=== PATIENT | male | born 1960 | race Caucasian/White ===

== ENCOUNTER 2016-12-21 11:01 | Inpatient (IN) | payer BC, OTHER ==
--- NOTE | 2016-12-21 11:15 | ED ---
General Adult HPI - General Stated complaint: chest pain Time Seen by Provider: 12/21/16 11:13 Source: RN notes reviewed, old records reviewed - History of Present Illness Initial comments: This is a 56-year-old [place] chest pain, anterior heaviness on his chest. Heart history of high blood pressure and high cholesterol. No prior cardiac evaluations. Patient will go from sleep with chest pain this morning and it did resolve, patient was again doing some exertional work today and is felt heaviness in his anterior chest.. Anterior chest pain or shortness of breath. - Related Data Home Medications Medication Instructions Recorded Confirmed Esomeprazole Magnesium [NexIUM] 20 mg PO DAILY 12/21/16 12/21/16 Levothyroxine Sodium [Synthroid] 50 mcg PO DAILY 12/21/16 12/21/16 Losartan [Cozaar] 25 mg PO DAILY 12/21/16 12/21/16 Simvastatin [Zocor] 40 mg PO HS 12/21/16 12/21/16 Allergies Allergy/AdvReac Type Severity Reaction Status Date / Time No Known Allergies Allergy Verified 12/21/16 11:45 Review of Systems ROS Statement: Those systems with pertinent positive or pertinent negative responses have been documented in the HPI. ROS Other: All systems not noted in ROS Statement are negative. Past Medical History Past Medical History: GERD/Reflux, Hyperlipidemia History of Any Multi-Drug Resistant Organisms: None Reported Past Surgical History: Hernia Repair Past Psychological History: No Psychological Hx Reported Smoking Status: Current every day smoker Past Alcohol Use History: Occasional Past Drug Use History: None Reported General Exam Limitations: altered mental status General appearance: alert, in no apparent distress, anxious Head exam: Present: atraumatic, normocephalic, normal inspection Eye exam: Present: normal appearance, PERRL, EOMI. Absent: scleral icterus, conjunctival injection, periorbital swelling ENT exam: Present: normal exam, mucous membranes moist Neck exam: Present: normal inspection. Absent: tenderness, meningismus, lymphadenopathy Respiratory exam: Present: normal lung sounds bilaterally. Absent: respiratory distress, wheezes, rales, rhonchi, stridor Cardiovascular Exam: Present: regular rate, normal rhythm, normal heart sounds. Absent: systolic murmur, diastolic murmur, rubs, gallop, clicks GI/Abdominal exam: Present: soft, normal bowel sounds. Absent: distended, tenderness, guarding, rebound, rigid Extremities exam: Present: normal inspection, full ROM, normal capillary refill. Absent: tenderness, pedal edema, joint swelling, calf tenderness Back exam: Present: normal inspection Neurological exam: Present: alert, oriented X3, CN II-XII intact Psychiatric exam: Present: normal affect, normal mood Skin exam: Present: warm, dry, intact, normal color. Absent: rash Course Vital Signs 12/21/16 12/21/16 12/21/16 11:05 11:19 12:08 Temperature 98.3 F 97.9 F Pulse Rate 78 70 Respiratory 18 20 20 Rate Blood Pressure 170/88 168/83 O2 Sat by Pulse 95 Oximetry - Reevaluation(s) Reevaluation #1: 12/21/16 12:28 Patient is remaining with anterior chest pain Reevaluation #2: 12/21/16 12:29 Spoke with cardiology remaining regarding patient, will see patient in emergency room EKG Findings - EKG Comments: EKG Findings:: EKG shows normal sinus rhythm rate of 80, TN 160, QRS 90, QTC 421 single-lead ST elevation minimally in V1. repeat. EKG shows normal sinus rhythm at 66, TN 180, QRS 90, QTC 427 Medical Decision Making - Medical Decision Making 50 formality ER for evaluation of anterior chest pain chest pain worsening with exertion started this morning at 3 AM the resolving nonrecurring this afternoon while at work. No EKG changes and out but does have elevated troponin, non-ST elevated [place], patient anticoagulated given aspirin, will perform bedside echo and patient will be admitted for cardiac evaluation and treatment. Cardiology was patient was at bedside in the emergency room. - Lab Data Result diagrams: 12/21/16 11:25 12/21/16 11:25 Lab Results 12/21/16 12/21/16 12/21/16 Range/Units 11:25 11:25 11:25 WBC 9.0 (3.8-10.6) k/uL RBC 4.47 (4.30-5.90) m/uL Hgb 15.3 (13.0-17.5) gm/dL Hct 44.8 (39.0-53.0) % MCV 100.3 H (80.0-100.0) fL MCH 34.1 (25.0-35.0) pg MCHC 34.0 (31.0-37.0) g/dL RDW 12.8 (11.5-15.5) % Plt Count 191 (150-450) k/uL Neutrophils % 71 % Lymphocytes % 21 % Monocytes % 4 % Eosinophils % 1 % Basophils % 1 % Neutrophils # 6.4 (1.3-7.7) k/uL Lymphocytes # 1.9 (1.0-4.8) k/uL Monocytes # 0.4 (0-1.0) k/uL Eosinophils # 0.1 (0-0.7) k/uL Basophils # 0.1 (0-0.2) k/uL PT (9.0-12.0) sec INR (<1.1) APTT (22.0-30.0) sec Sodium 138 (137-145) mmol/L Potassium 4.1 (3.5-5.1) mmol/L Chloride 102 (98-107) mmol/L Carbon Dioxide 22 (22-30) mmol/L Anion Gap 14 mmol/L BUN 12 (9-20) mg/dL Creatinine 0.66 (0.66-1.25) mg/dL Est GFR (MDRD) Af Amer >60 (>60 ml/min/1.73 sqM) Est GFR (MDRD) Non-Af >60 (>60 ml/min/1.73 sqM) Glucose 107 H (74-99) mg/dL Calcium 9.5 (8.4-10.2) mg/dL Magnesium 1.5 L (1.6-2.3) mg/dL Total Bilirubin 0.6 (0.2-1.3) mg/dL AST 65 H (17-59) U/L ALT 50 (21-72) U/L Alkaline Phosphatase 58 (38-126) U/L Total Creatine Kinase 617 H (55-170) U/L CK-MB (CK-2) 39.2 H* (0.0-2.4) ng/mL CK-MB (CK-2) Rel Index 6.4 Troponin I 2.080 H* (0.000-0.034) ng/mL Total Protein 7.6 (6.3-8.2) g/dL Albumin 4.4 (3.5-5.0) g/dL Lipase 89 (23-300) U/L 03/16/17 Range/Units 11:25 WBC (3.8-10.6) k/uL RBC (4.30-5.90) m/uL Hgb (13.0-17.5) gm/dL Hct (39.0-53.0) % MCV (80.0-100.0) fL MCH (25.0-35.0) pg MCHC (31.0-37.0) g/dL RDW (11.5-15.5) % Plt Count (150-450) k/uL Neutrophils % % Lymphocytes % % Monocytes % % Eosinophils % % Basophils % % Neutrophils # (1.3-7.7) k/uL Lymphocytes # (1.0-4.8) k/uL Monocytes # (0-1.0) k/uL Eosinophils # (0-0.7) k/uL Basophils # (0-0.2) k/uL PT 10.9 (9.0-12.0) sec INR 1.1 (<1.1) APTT 27.3 (22.0-30.0) sec Sodium (137-145) mmol/L Potassium (3.5-5.1) mmol/L Chloride (98-107) mmol/L Carbon Dioxide (22-30) mmol/L Anion Gap mmol/L BUN (9-20) mg/dL Creatinine (0.66-1.25) mg/dL Est GFR (MDRD) Af Amer (>60 ml/min/1.73 sqM) Est GFR (MDRD) Non-Af (>60 ml/min/1.73 sqM) Glucose (74-99) mg/dL Calcium (8.4-10.2) mg/dL Magnesium (1.6-2.3) mg/dL Total Bilirubin (0.2-1.3) mg/dL AST (17-59) U/L ALT (21-72) U/L Alkaline Phosphatase (38-126) U/L Total Creatine Kinase (55-170) U/L CK-MB (CK-2) (0.0-2.4) ng/mL CK-MB (CK-2) Rel Index Troponin I (0.000-0.034) ng/mL Total Protein (6.3-8.2) g/dL Albumin (3.5-5.0) g/dL Lipase (23-300) U/L - Radiology Data Radiology results: report reviewed (Chest x-ray is negative for acute disease), image reviewed Critical Care Time Critical Care Time: Yes Total Critical Care Time: 31 Disposition Clinical Impression: NSTEMI (non-ST elevated myocardial infarction) Disposition: ADMITTED IP TO THIS [facility] Condition: Critical Referrals: Itz Chahal DO [Primary Care Provider] - 1-2 days
[2016-12-21 11:41] LABS: Basophils # (A) 0.1 k/uL (0-0.2); Basophils % (A) 1 %; CH 34.6; CHCM 34.6; Eosinophils # (A) 0.1 k/uL (0-0.7); Eosinophils % (A) 1 %; HCT 44.8 % (39.0-53.0); HDW 2.29; HGB 15.3 gm/dL (13.0-17.5); Luc # (Auto) 0.19; Luc % (Auto) 2; Lymphocytes # (A) 1.9 k/uL (1.0-4.8); Lymphocytes % (A) 21 %; MCH 34.1 pg (25.0-35.0); MCV 100.3 fL (80.0-100.0); Mean Platelet Volume 7.6; Monocytes # (A) 0.4 k/uL (0-1.0); Monocytes % (A) 4 %; Neutrophils # (A) 6.4 k/uL (1.3-7.7); Neutrophils % (A) 71 %; RBC 4.47 m/uL (4.30-5.90); RDW 12.8 % (11.5-15.5); WBC (Perox) 8.91
[2016-12-21 11:52] LABS: INR 1.1 (<1.1); Partial Thromboplastin Time 27.3 sec (22.0-30.0); Prothrombin Time 10.9 sec (9.0-12.0)
[2016-12-21 11:56] LABS: ALT 50 U/L (21-72); AST 65 U/L (17-59); Alkaline Phosphatase 58 U/L (38-126); Anion Gap 14 mmol/L; Blood Urea Nitrogen 12 mg/dL (9-20); Calcium 9.5 mg/dL (8.4-10.2); Carbon Dioxide 22 mmol/L (22-30); Chloride 102 mmol/L (98-107); Glucose 107 mg/dL (74-99); Magnesium 1.5 mg/dL (1.6-2.3); Non-African American GFR(MDRD) >60 (>60 ml/min/1.73 sqM); Potassium 4.1 mmol/L (3.5-5.1); Sodium 138 mmol/L (137-145); Total Bilirubin 0.6 mg/dL (0.2-1.3); Total Protein 7.6 g/dL (6.3-8.2)
--- NOTE | 2016-12-21 11:56 | XR ---
EXAMINATION TYPE: XR chest 2V DATE OF EXAM: 12/21/2016 11:53 AM COMPARISON: NONE HISTORY: Chest pain this morning. TECHNIQUE: Frontal and lateral views of the chest are obtained. FINDINGS: There is no focal air space opacity, pleural effusion, or pneumothorax seen. Underlying em physematous change is not excluded. The cardiac silhouette size is within normal limits. The osseou s structures are intact. IMPRESSION: No acute cardiopulmonary process.
[2016-12-21 12:21] LABS: Creatine Kinase MB 39.2 ng/mL (0.0-2.4); Troponin I 2.08 ng/mL (0.000-0.034)
[2016-12-21] MEDS ORDERED: ASPIRIN 81 MG CHEW PO STA (12:22)
[2016-12-21] MEDS ORDERED: HEPARIN SODIUM,PORCINE 5,000 UNIT/ML 1 ML VIAL IV PRN (12:22)
[2016-12-21] MEDS ORDERED: HEPARIN SODIUM,PORCINE 5,000 UNIT/ML 1 ML VIAL IV ONE (12:22)
[2016-12-21] MEDS ORDERED: HEPARIN SODIUM,PORCINE/D5W PMX 25,000 UNIT in DEXTROSE/WATER 1 500ML.BAG IV SCH (12:30)
[2016-12-21] MEDS: NITROGLYCERIN SL TABS 0.4 MG TAB SUBLINGUAL PRN ×3 (12:30→12:41)
[2016-12-21] MEDS: ATORVASTATIN 80 MG TAB PO SCH ×2 (12:31→13:07)
[2016-12-21] MEDS ORDERED: ATORVASTATIN 80 MG TAB PO ONE (13:15)
[2016-12-21] MEDS ORDERED: fentaNYL (PF) 50 MCG/ML 2 ML AMP IV ONE (13:21)
[2016-12-21] MEDS ORDERED: MIDAZOLAM 2 MG/2 ML VIAL IVP ONE ×2 (13:21→17:14)
[2016-12-21] MEDS ORDERED: IV FLUID CONTINUATION 450 ML IV ONE (13:26)
[2016-12-21] MEDS ORDERED: LIDOCAINE 2% INJ 20 MG/ML SQ ONE ×2 (13:26→17:14)
[2016-12-21] MEDS ORDERED: IOHEXOL 350 MG/ML 100 ML BOTTLE INJ ONE ×2 (13:59→17:58)
[2016-12-21] MEDS ORDERED: PRASUGREL 10 MG TAB PO ONE (14:00)
--- NOTE | 2016-12-21 15:00 | CONS ---
DATE OF CONSULTATION: Mr. Anthony is a 56-year-old gentleman who is seen for the cardiac evaluation. This patient woke up around 3:30 in the morning with the complaint of substernal chest discomfort with radiation to the left arm. Patient was slightly nauseated, pain subsequently subsided. He went to work and had recurrence of the pain and so the patient came here. EKG shows evidence of mild ST-elevation in V1, no reciprocal changes are noted. At present, patient is pain free. Initial troponin came back as 2.0. This patient has a history of hypertension, hyperlipidemia and he smokes. There is no previous history of myocardial infarction. PAST MEDICAL HISTORY: No history of any major surgeries. Review of systems is otherwise unremarkable. Physical examination at present reveals a 56-year-old, obesely-built gentleman who does not appear to be in any acute distress. Heart rate is 75 per minute. The blood pressure is 130/80 mmHg. HEENT examination is negative. Neck is supple. There is no increase in jugular venous pressure. Both the carotid pulses are felt. There is no bruit. Chest is symmetrical. HEART: The PMI is not felt. First and second heart sounds are normal. There is no evidence of any murmur. Lungs are clinically clear to auscultation and percussion. Abdomen is soft. Chest x-ray is normal. Patient's lab tests are normal. Troponin is 2.0. Echocardiogram was performed which does not show any significant wall motion abnormality. FINAL IMPRESSION: Chest pain suggestive of non-ST segment elevation myocardial infarction. Patient has a mild ST-segment elevation in lead V1. RECOMMENDATIONS: We will proceed with the cardiac catheterization for definitive diagnosis.
[2016-12-21] MEDS ORDERED: IV FLUID CONTINUATION 150 ML IV ONE (16:50)
[2016-12-21] MEDS ORDERED: LIDOCAINE 2% INJ 20 MG/ML (20 ML MDV) ONE (16:53)
[2016-12-21] MEDS ORDERED: fentaNYL (PF) 50 MCG/ML 2 ML AMP ONE (16:53)
[2016-12-21] MEDS ORDERED: MIDAZOLAM 2 MG/2 ML VIAL ONE (17:12)
[2016-12-21] MEDS ORDERED: BIVALIRUDIN BOLUS 250 MG/50 ML IV ONE (17:17)
[2016-12-21] MEDS ORDERED: BIVALIRUDIN 250 MG in SODIUM CHLORIDE 0.9% 50 ML IV ONE (17:18)
[2016-12-21] MEDS: NITROGLYCERIN 1000MCG/10ML SYRINGE INTRACORON ONE ×2 (17:22→17:34)
[2016-12-21] MEDS ORDERED: SODIUM CHLORIDE 0.9% 1,000 ML IV ONE (17:31)
[2016-12-21] MEDS ORDERED: RX INFO: IV CONTRAST WAS GIVEN 1 EACH MISC MISCELLANE PRN (18:11)
[2016-12-21] MEDS ORDERED: ZOLPIDEM 5 MG TAB PO PRN (18:11)
[2016-12-21] MEDS ORDERED: ATROPINE SULFATE 0.1 MG/ML 10ML SYRINGE IV PRN (18:11)
[2016-12-21] MEDS ORDERED: MAG HYDROX/AL HYDROX/SIMETH 30 ML CUP PO PRN (18:11)
[2016-12-21] MEDS ORDERED: NITROGLYCERIN SL TABS 0.4 MG TAB SUBLINGUAL PRN (18:11)
[2016-12-21] MEDS ORDERED: SODIUM CHLORIDE 0.9% 1,000 ML IV SCH (18:15)
[2016-12-21] MEDS: HYDROcodone/APAP 5-325MG 1 EACH TAB PO PRN (19:20)
[2016-12-21 19:37] LABS: Creatine Kinase MB 90.3 ng/mL (0.0-2.4); Troponin I 10.9 ng/mL (0.000-0.034)
[2016-12-21] MEDS ORDERED: TEMAZEPAM 15 MG CAP PO PRN (20:07)
[2016-12-21] MEDS: METOPROLOL TARTRATE 25 MG TAB PO SCH (20:30)
[2016-12-21] MEDS: NICOTINE 14MG/24HR PATCH TRANSDERM SCH (20:42)
--- NOTE | 2016-12-21 21:51 | CC ---
DATE OF SERVICE: Mr. Anthony is a 56-year-old gentleman who came to the emergency room with recurrent episodes of the resting pain. EKG showed mild ST elevation in V1. Initial troponin was 2.0. Echocardiogram did not show any significant wall motion abnormality. In view of that, history suggestive of non-ST segment elevation myocardial infarction. Patient was recommended to have a cardiac catheterization. PROCEDURE: Right groin was prepped and in the usual manner and the skin was infiltrated with 2% Xylocaine. The right femoral artery was entered using Seldinger technique. A #6 Micronesian sheath was placed in. Selective coronary angiography was then performed in multiple projections and the left ventriculography was performed. Patient tolerated the procedure well. HEMODYNAMICS: Left ventricular end-diastolic pressure is 16 mmHg prior to angiography and 20 mmHg post angiography. No gradient was noted across the aortic valve. SELECTIVE CORONARY ANGIOGRAPHY: LEFT MAIN: Left main coronary artery is normal and patent. LEFT ANTERIOR DESCENDING CORONARY ARTERY: LAD is a good caliber blood vessel and mid LAD after the origin of the diagonal branch has about 70% stenosis. CIRCUMFLEX CORONARY ARTERY: Circumflex coronary artery is normal. RIGHT CORONARY ARTERY: The mid right coronary artery has 70% stenosis. LEFT VENTRICULOGRAM: Left ventriculography reveals normal left ventricular systolic function. FINAL IMPRESSION: This patient has presented with non-Q-wave myocardial infarction. There is about 70% stenosis in mid RCA as well as in mid LAD. RECOMMENDATIONS: We will review the films with Dr. Aguilar and consider intervention.
--- NOTE | 2016-12-21 22:00 | HP ---
DATE OF ADMISSION: 12/21/2016 I am covering for Dr. Chahal. CHIEF COMPLAINT: Chest pain. HISTORY OF PRESENT ILLNESS: This 56-year-old with a history of hypertension, hyperlipidemia, hypothyroidism, history of GERD, being followed by Dr. Chahal in the outpatient setting, complaining of severe chest pain this morning. The pain started around 3 o'clock and was in the anterior part of the chest, heavy in character, which was radiating to the left arm. It was associated with some sweating and palpitations. The patient came to [facility] and was admitted for further evaluation and treatment. The initial EKG showed ST-T changes and minimal ST elevation in V1, acute anterior wall myocardial infarction was suspected. The patient underwent cardiac cath. The patient is being closely monitored. The patient has occasional cough. The patient has a significant history of EtOH and smoking also. There is no history of fevers or rigors. No history of headache, loss of consciousness, seizures. PAST MEDICAL HISTORY: History of GERD, hypertension, hypothyroidism, GERD, hernia repair. MEDICATIONS: 1. Zocor 40 mg at bedtime. 2. Cozaar 25 mg p.o. daily. 3. Synthroid 50 mcg p.o. daily. 4. Nexium 20 mg daily. ALLERGIES: None. FAMILY HISTORY: History of CAD, diabetes mellitus and myocardial infarction in the family. SOCIAL HISTORY: History of smoking. History of alcohol. REVIEW OF SYSTEMS: ENT: No diminished hearing. No diminished vision. CARDIOVASCULAR: As mentioned earlier. RESPIRATORY: As mentioned earlier. GI: No. : No dysuria. ENDOCRINE: As mentioned. CONSTITUTIONAL: As mentioned. HEMATOLOGY: Negative. RHEUMATOLOGIC: Negative. PSYCHIATRY: As mentioned. NEUROLOGY: Negative. PHYSICAL EXAMINATION: GENERAL: The patient is alert, oriented x3. Pulse is 80, blood pressure 149/87, respirations 20, temperature 98.4, pulse ox 94% on room air. HEENT: Conjunctivae normal. Oral mucosa moist. NECK: No JVD. No lymph node enlargement. CARDIOVASCULAR: S1 and S2 muffled. No thrills, no S3 or S4. LUNGS: Breath sounds are diminished in the bases. Scattered rhonchi and crackles. ABDOMEN: Soft, nontender. No mass palpable. LEGS: No edema, no swelling. NERVOUS SYSTEM: Higher functions as mentioned. Moves all limbs. No focal motor or sensory deficits. LYMPHATICS: No lymph nodes present in the neck, axillae or groin. SKIN: No rashes. JOINT: No deformity. LABS: APTT 54.7, glucose 107, magnesium 1.5, troponin 2.080. 100.3. ASSESSMENT: 1. Chest pain with acute anterior wall myocardial infarction status post cardiac catheterization and stenting. Troponin 10.900. 2. Elevated CK and CK-MB. 3. Hypomagnesemia. 4. History of nicotine dependence. 5. Increased random blood sugar. 6. Increased AST. 7. History of EtOH. 8. Increased MCV. 9. Hypertension. 10. Hyperlipidemia. 11. Hypothyroidism. 12. Gastroesophageal reflux disease. 13. History of hernia repair. 14. History of colonoscopy. 15. FULL CODE. 16. Obesity, body mass index of 32.9. RECOMMENDATIONS AND DISCUSSION: This 56-year-old gentleman presented with multiple complex medical issues. At this time we will monitor the patient closely. Continue the current medications and treatment. I have recommend to continue with aspirin. Monitor LFTs closely. [facility] protocol. Habitrol patch. Guarded prognosis because of multiple complex medical issues. Further recommendations to follow. See orders for details. Also recommend the patient closely follow Dr. Chahal after discharge. Otherwise, continue to monitor. Follow with cardiology. Prognosis guarded. Discussed with the family. Smoking cessation also advised. CHANDLERD
[2016-12-22] MEDS: HYDROcodone/APAP 5-325MG 1 EACH TAB PO PRN (00:05)
[2016-12-22 00:33] LABS: Appearance,Urine Clear (Clear); Bilirubin,Urine Negative (Negative); Glucose,Urine (UA) Negative (Negative); Ketones,Urine Negative (Negative); Leukocyte Esterase,Urine Negative (Negative); Nitrite,Urine Negative (Negative); PH, Urine 6.5 (5.0-8.0); Protein,Urine Trace (Negative); Specific Gravity,Urine 1.043 (1.001-1.035); UA Billing (MACRO vs. MICRO) CHEM; Urobilinogen,Urine <2.0 mg/dL (<2.0)
[2016-12-22 00:50] LABS: Creatine Kinase MB 91.3 ng/mL (0.0-2.4); Troponin I 17.1 ng/mL (0.000-0.034)
[2016-12-22 06:32] LABS: Basophils % (A) 1 %; CHCM 33.8; Eosinophils # (A) 0.1 k/uL (0-0.7); Eosinophils % (A) 1 %; HCT 45.1 % (39.0-53.0); HDW 2.24; HGB 14.9 gm/dL (13.0-17.5); Luc # (Auto) 0.18; Luc % (Auto) 2; Lymphocytes # (A) 2.7 k/uL (1.0-4.8); Lymphocytes % (A) 30 %; MCH 33.4 pg (25.0-35.0); MCV 101.1 fL (80.0-100.0); Mean Platelet Volume 6.9; Monocytes # (A) 0.5 k/uL (0-1.0); Monocytes % (A) 5 %; Neutrophils # (A) 5.6 k/uL (1.3-7.7); Neutrophils % (A) 62 %; RBC 4.46 m/uL (4.30-5.90); RDW 12.9 % (11.5-15.5); WBC 9.1 k/uL (3.8-10.6); WBC (Perox) 9.14
[2016-12-22] MEDS: PANTOPRAZOLE 40 MG TABLET PO SCH (06:32)
[2016-12-22] MEDS: LEVOTHYROXINE 50 MCG TAB PO SCH (06:32)
[2016-12-22 07:25] LABS: ALT 56 U/L (21-72); AST 144 U/L (17-59); Alkaline Phosphatase 54 U/L (38-126); Anion Gap 8 mmol/L; Blood Urea Nitrogen 8 mg/dL (9-20); Calcium 9.1 mg/dL (8.4-10.2); Carbon Dioxide 26 mmol/L (22-30); Chloride 104 mmol/L (98-107); Cholesterol 181 mg/dL (<200); Glucose 98 mg/dL (74-99); HDL Cholesterol 52 mg/dL (40-60); Non-African American GFR(MDRD) >60 (>60 ml/min/1.73 sqM); Potassium 4.3 mmol/L (3.5-5.1); Sodium 138 mmol/L (137-145); Total Bilirubin 0.8 mg/dL (0.2-1.3); Total Protein 6.8 g/dL (6.3-8.2); Triglycerides 72 mg/dL (<150)
--- NOTE | 2016-12-22 07:49 | PTCA ---
DATE OF SERVICE: Mr. Anthony is a 56-year-old male who presented with symptoms of chest pain and minimal troponin elevation and mild EKG changes, underwent cardiac catheterization by Dr. Phillip Reyez and was found to have significant obstructive disease involving the mid LAD and the mid right coronary artery in a long segment. In view of that, recommendation was made regarding cardiac catheterization. The procedure as well as the risks and complications were discussed with the patient who is in full understanding and agreement. PROCEDURE: Patient was brought to the senior cytogenetics laboratory director in fasting semi state after receiving fentanyl and Benadryl and achieving conscious moderate sedation state. Following that, using Xylocaine anesthesia, a guidewire exchange technique, the 6 Togolese sheath in the right femoral artery was exchanged to a new 6 Togolese sheath. Following that, left coronary angiography was performed using 6 Togolese FR4 guiding catheter. After cannulating the left main, a 0.014 balanced medium weight J-wire was advanced across the lesion, positioned distally. Then a 2.5 x 15 mm Xience Alpine stent was deployed, postdilated at 14 atmospheres. Following that, the balloon was removed. Images were obtained and repeated those images revealed stable successful stenting. At that point, the guiding catheter, the balloon and the guidewire were removed and a 6 Togolese FR4 guiding catheter was introduced into the system and the right coronary ostium was cannulated. Following that, a 0.14 balanced medium weight J-wire was advanced across the lesion, positioned distally and a 2.5 x 33 mm Xience Alpine stent was deployed, postdilated to 16 atmospheres. Following that, the balloon was removed and a 2.75 x 15 mm NC trek balloon was advanced and 2 inflations at maximum of 14 atmospheres were done. After the last inflation, after appropriate wait, the balloon and guidewire were withdrawn back in the guiding catheter. Images were obtained and repeated. Those images reveal stable successful stenting. At that point, the guiding catheter, balloon, and the guidewire were removed. The sheath was removed. Hemostasis was obtained with deployment of an Angio-Seal. There was no immediate complications. Patient is returned to his room in stable condition. Of note, the patient had EKG changes with the inflation of the right coronary artery with mild chest discomfort with the inflation of the right coronary artery. His symptoms resolved at the end of the procedure. He received Angiomax per protocol as well as prior loading dose of Effient. RESULT: 1. Successful stenting of the mid left anterior descending with reduction in stenosis from 70% to 0%. 2. Successful stenting of the mid right coronary artery with reduction in stenosis from 70% to 0%. RECOMMENDATIONS: Patient will be continued on aspirin, Effient, beta mago, LIO inhibitor and statin. The importance of dual antiplatelet treatment was discussed with the patient and his family and are in full understanding and agreement.
--- NOTE | 2016-12-22 07:53 | LTR ---
December 21, 2016 RE: CarlosmaryChilo Dear Dr. Chahal: I had the pleasure of performing coronary angioplasty and stenting on Mr. Anthony at [facility] on December 21, 2016 and a full copy of procedure note will be forwarded to you. In brief, he underwent successful stenting of his mid right coronary artery and mid LAD using a drug-eluting stent. I am hopeful that this procedure will stabilize his status. Thank you again for allowing me to participate in his care. Please feel free to call for any questions. Sincerely, BUDDY MCCRAY MD
[2016-12-22] MEDS: ATORVASTATIN 80 MG TAB PO SCH (08:16)
[2016-12-22] MEDS: PRASUGREL 10 MG TAB PO SCH (08:16)
[2016-12-22] MEDS: LOSARTAN 25 MG TAB PO SCH (08:17)
[2016-12-22] MEDS: ASPIRIN 81 MG CHEW PO SCH (08:18)
[2016-12-22] MEDS: METOPROLOL TARTRATE 25 MG TAB PO SCH ×2 (08:18→20:35)
[2016-12-22] MEDS: NICOTINE 14MG/24HR PATCH TRANSDERM SCH (08:18)
[2016-12-22] MEDS: IPRATROPIUM 0.5 MG/2.5 ML NEBU INHALATION SCH ×3 (08:42→20:36)
[2016-12-22] MEDS: LEVALBUTEROL NEB (CONC) 1.25 MG/0.5 ML AMP INHALATION SCH ×3 (08:42→20:36)
[2016-12-22] MEDS ORDERED: ASPIRIN 325 MG TAB PO SCH (09:00)
--- NOTE | 2016-12-22 10:29 | ECHOF ---
Referral Reason:elevTrop MEASUREMENTS -------- HEIGHT: 162.6 cm WEIGHT: 107.1 kg BP: RVIDd: 3.0 cm (< 3.3) IVSd: 1.1 cm (0.6 - 1.1) LVIDd: 4.7 cm (3.9 - 5.3) LVPWd: 1.1 cm (0.6 - 1.1) IVSs: 1.5 cm LVIDs: 3.2 cm LVPWs: 1.3 cm Ao Diam: 4.4 cm (2.0 - 3.7) AV Cusp: 1.8 cm (1.5 - 2.6) LA Diam: 2.9 cm (2.7 - 3.8) MV EXCURSION: 23.427 mm (> 18.000) MV EF SLOPE: 94 mm/s (70 - 150) EPSS: 0.9 cm MV E Kumar: 0.67 m/s MV DecT: 277 ms MV A Kumar: 0.96 m/s MV E/A Ratio: 0.70 RAP: 5.00 mmHg RVSP: 11.77 mmHg FINDINGS -------- Sinus rhythm. This was a technically adequate study. There is mild concentric left ventricular hypertrophy. Overall left ventricular systolic function is normal with, an EF between 55 - 60 %. The right ventricle is normal in size. The left atrial size is normal. The right atrial size is normal. There is mild aortic valve sclerosis. There is no evidence of aortic regurgitation. Mild mitral annular calcification present. Mild mitral regurgitation is present. Mild tricuspid regurgitation present. There is no evidence of pulmonary hypertension. The right ventricular systolic pressure, as measured by Doppler, is 11.77mmHg. There is no pulmonic regurgitation present. The aortic root size is normal. There is no pericardial effusion. CONCLUSIONS -------- 1. There is mild concentric left ventricular hypertrophy. 2. Overall left ventricular systolic function is normal with, an EF between 55 - 60 %. 3. There is mild aortic valve sclerosis. 4. Mild mitral annular calcification present. 5. Mild mitral regurgitation is present. 6. Mild tricuspid regurgitation present. 7. There is no evidence of pulmonary hypertension. 8. The right ventricular systolic pressure, as measured by Doppler, is 11.77mmHg. BUSINESS SYSTEMS LEAD: Herminia Gill RDCS
--- NOTE | 2016-12-22 16:47 | PN ---
DATE OF SERVICE: 12/22/2016 I am covering for Dr. Chahal. This 56-year-old gentleman with a past medical history of multiple medical problems admitted with acute anterior wall myocardial infarction. The patient underwent successful stenting of the mid LAD with reduction of stenosis from 70% to 0% and stenting of the mid RCA with reduction of stenosis of 70% to 0% by Dr. Aguilar. The patient is being closely monitored. No chest or palpitation. No fever. On exam, alert and oriented x3. Pulse 64, blood pressure 99/64, respirations 16, temperature 97.8. Pulse ox 94% on room air. HEENT: Conjunctivae normal. NECK: No jugular venous distension. CARDIOVASCULAR: S1 and S2 muffled. RESPIRATORY: Breath sounds diminished in the bases. No rhonchi. No crackles. ABDOMEN: Soft, nontender. LEGS: No edema. No swelling. NERVOUS SYSTEM: No focal deficits. LABS: CBC within normal limits. MCV is 101.1. AST is 144. Troponin is 10.900. The is 115. ASSESSMENT: 1. Chest pain with possible acute anterior wall myocardial infarction, status post cardiac catheterization as well as stenting of the left anterior descending artery as well as right coronary artery. 2. Troponin 10.900. 3. Elevated CK and CK-MB. 4. Hypomagnesemia. 5. History of nicotine dependence. 6. Increased random blood sugar. 7. Increased AST. 8. History of EtOH. 9. Increased MCV. 10. Hypertension. 11. Hyperlipidemia. 12. Hypothyroidism. 13. Gastroesophageal reflux disease. 14. History of hernia repair. 15. History of colonoscopy. 16. Obesity with body mass index of 38.9. 17. FULL CODE. RECOMMENDATIONS AND DISCUSSION: In this 56-year-old gentleman who presented with multiple complex medical issues, will monitor the patient closely, continue with the current medications, continue with antiplatelet agents, continue with beta blockers and LIO inhibitors. I would also recommend Lipitor and monitor closely the LFTs. Prognosis guarded because of multiple complex medical issues. Further recommendations to follow. Follow close with Cardiology. CHANDLERD
--- NOTE | 2016-12-22 18:18 | PN ---
Chilo Anthony is a 56-year-old gentleman. Admitted to the hospital with a non-Q-wave myocardial infarction, underwent cardiac catheterization, found to have triple vessel disease and underwent angioplasty of the left anterior descending and right coronary stenting done by my associate yesterday. Patient is making fair progress. Patient is hypertensive, diabetic, hypercholesterolemic and smoker. Patient quit smoking prior to coming into the hospital. Patient is making excellent progress. Patient should be able to go home tomorrow. Patient's LV function is well preserved. Current medications include aspirin 81 mg p.o. daily, atorvastatin 80 mg p.o. daily, Atrovent inhaler, albuterol inhaler that is Xopenex. Levothyroxine 50 mcg p.o. daily, losartan 25, metoprolol 25 mg p.o. b.i.d., Effient 10 mg p.o. daily, Protonix 40 mg p.o. daily, nitroglycerin 0.4 mg sublingually p.r.n. for chest pain and nicotine Habitrol patch 14 mg patch daily. Patient's vital signs are stable with a pulse rate of 64 beats per minute and regular, blood pressure of 99/61, respirations of 16. Head normocephalic. HEENT unremarkable. Neck is supple. No thyroid enlargement. No bruit noted. Good carotid upstroke bilaterally. Chest is symmetrical. CARDIAC EXAMINATION: S1 and S2. LUNGS: Clinically clear to auscultation. ABDOMEN: Soft. No hepatomegaly. Patient is making good progress and should be able to go home. Advised to stay off the smoking for the rest of his life. Patient advised to follow up with Dr. Julian Reyez in a week or two. The patient follows with Dr. Itz Chahal also.
[2016-12-23] MEDS: NITROGLYCERIN SL TABS 0.4 MG TAB SUBLINGUAL PRN (03:58)
[2016-12-23 06:18] LABS: Basophils % (A) 0 %; CH 34.5; CHCM 33.7; Eosinophils # (A) 0.1 k/uL (0-0.7); Eosinophils % (A) 1 %; HCT 41.2 % (39.0-53.0); HDW 2.25; HGB 13.8 gm/dL (13.0-17.5); Luc # (Auto) 0.18; Luc % (Auto) 2; Lymphocytes # (A) 1.9 k/uL (1.0-4.8); Lymphocytes % (A) 20 %; MCH 34.4 pg (25.0-35.0); MCHC 33.4 g/dL (31.0-37.0); Macrocytosis Slight; Mean Platelet Volume 7.8; Monocytes # (A) 0.5 k/uL (0-1.0); Monocytes % (A) 6 %; Neutrophils # (A) 6.7 k/uL (1.3-7.7); Neutrophils % (A) 71 %; WBC 9.4 k/uL (3.8-10.6); WBC (Perox) 9.61
[2016-12-23 06:28] LABS: ALT 50 U/L (21-72); AST 91 U/L (17-59); Alkaline Phosphatase 52 U/L (38-126); Blood Urea Nitrogen 9 mg/dL (9-20); Carbon Dioxide 28 mmol/L (22-30); Chloride 104 mmol/L (98-107); Glucose 105 mg/dL (74-99); Non-African American GFR(MDRD) >60 (>60 ml/min/1.73 sqM); Potassium 4.1 mmol/L (3.5-5.1); Total Bilirubin 0.6 mg/dL (0.2-1.3); Total Protein 6.4 g/dL (6.3-8.2)
[2016-12-23 06:29] LABS: Anion Gap 8 mmol/L; Sodium 140 mmol/L (137-145)
[2016-12-23] MEDS: PANTOPRAZOLE 40 MG TABLET PO SCH (06:51)
[2016-12-23] MEDS: LEVOTHYROXINE 50 MCG TAB PO SCH (06:51)
[2016-12-23] MEDS: IPRATROPIUM 0.5 MG/2.5 ML NEBU INHALATION SCH ×3 (08:14→21:16)
[2016-12-23] MEDS: LEVALBUTEROL NEB (CONC) 1.25 MG/0.5 ML AMP INHALATION SCH ×3 (08:14→21:15)
[2016-12-23] MEDS: ASPIRIN 81 MG CHEW PO SCH (08:56)
[2016-12-23] MEDS: ATORVASTATIN 80 MG TAB PO SCH (08:56)
[2016-12-23] MEDS: NICOTINE 14MG/24HR PATCH TRANSDERM SCH (08:56)
[2016-12-23] MEDS: METOPROLOL TARTRATE 25 MG TAB PO SCH ×2 (08:57→19:55)
[2016-12-23] MEDS: LOSARTAN 25 MG TAB PO SCH (08:57)
[2016-12-23] MEDS: PRASUGREL 10 MG TAB PO SCH (08:57)
--- NOTE | 2016-12-23 12:39 | P.PN ---
Subjective Principal diagnosis: Acute [place] This is a pleasant 56-year-old gentleman who presented to the hospital with a chest discomfort and ruled in for acute non-ST elevation myocardial infarction. He underwent heart catheterization and underwent successful stenting of the LAD and right coronary artery with a good angiographic results. He denies having any chest pain or discomfort or difficulty breathing. The right groin seems to be soft and nontender and with some bruises. He continues to be on dual antiplatelet therapy along with anti-ischemic medications. I will keep the patient on the current medical treatment and possible discharge home tomorrow morning. Objective - Vital Signs Vital signs: Vital Signs Temp 98.1 F 12/23/16 07:30 Pulse 80 12/23/16 08:27 Resp 16 12/23/16 07:30 BP 111/66 12/23/16 07:30 Pulse Ox 95 12/23/16 07:30 Intake & Output 12/22/16 12/23/16 12/23/16 18:59 06:59 18:59 Intake Total 536 600 240 Balance 536 600 240 Weight 114.6 kg Intake: Oral 536 600 240 Other: Voiding Method Toilet Toilet # Voids 1 1 1 - Constitutional General appearance: Present: no acute distress - Respiratory Respiratory: bilateral: wheezing - Cardiovascular Rhythm: regular Heart sounds: normal: S1, S2 - Labs CBC & Chem 7: 12/23/16 05:38 12/23/16 05:38 Labs: Abnormal Lab Results - Last 24 Hours (Table) 12/23/16 12/23/16 Range/Units 05:38 05:38 RBC 4.00 L (4.30-5.90) m/uL MCV 103.0 H (80.0-100.0) fL Glucose 105 H (74-99) mg/dL AST 91 H (17-59) U/L Assessment and Plan Plan: Assessment Acute non-ST Status post PCI of the LAD and RCA History of smoking Plan Continue the patient on the current medical treatment The echocardiogram showed normal function Follow-up with the patient
--- NOTE | 2016-12-23 21:06 | PN ---
I am covering for Dr. Chahal. This 56-year-old gentleman who was admitted with chest pain and acute myocardial infarction had stenting of the LAD as well as RCA. The patient had complained of some chest pain yesterday. No fever. No cough. On exam, alert and oriented x3. Pulse is 65, blood pressure 130/65, respirations 18, temperature normal, pulse ox 96% on room air. HEENT: Conjunctivae normal. NECK: No jugular venous distension. CARDIOVASCULAR: S1 and S2 muffled. RESPIRATORY: Breath sounds diminished in the bases. No rhonchi. No crackles. ABDOMEN: Soft, nontender. LEGS: No edema. No swelling. NERVOUS SYSTEM: No focal deficits. LABS: WBC 9.5 and MCV 103. AST is 91, ALT is 50. The troponin is 10.900. ASSESSMENT: 1. Chest pain with possible acute anterior wall myocardial infarction, status post cardiac catheterization as well as stenting of the left anterior descending artery as well as right coronary artery with troponin 10.900. 2. Elevated CK and CK-MB. 3. Hypomagnesemia. 4. History of nicotine dependence. 5. Increased random blood sugar. 6. Increased AST. 7. History of EtOH. 8. Increased MCV. 9. Hypertension. 10. Hyperlipidemia. 11. Hypothyroidism. 12. Gastroesophageal reflux disease. 13. History of hernia repair. 14. History of colonoscopy. 15. Obesity with body mass index of 38.9. 16. FULL CODE. RECOMMENDATIONS AND DISCUSSION: Recommend to continue current management. Continue with monitoring and symptomatic treatment. Otherwise, at this time I would recommend continue with Lipitor, continue with beta blockers, continue the rest of the medications. Increase ambulation. Further recommendations per Cardiology. Further recommendations to follow.
[2016-12-23] MEDS: ALBUTEROL NEBULIZED 2.5 MG/3 ML INHALATION SCH (21:15)
[2016-12-24 06:24] LABS: Basophils # (A) 0.1 k/uL (0-0.2); Basophils % (A) 1 %; CH 33.8; CHCM 33.5; Eosinophils # (A) 0.1 k/uL (0-0.7); Eosinophils % (A) 2 %; HCT 41.7 % (39.0-53.0); HDW 2.21; HGB 14.1 gm/dL (13.0-17.5); Luc # (Auto) 0.18; Luc % (Auto) 2; Lymphocytes % (A) 22 %; MCH 34.2 pg (25.0-35.0); MCHC 33.7 g/dL (31.0-37.0); MCV 101.5 fL (80.0-100.0); Macrocytosis Slight; Mean Platelet Volume 7.2; Monocytes # (A) 0.6 k/uL (0-1.0); Monocytes % (A) 6 %; Neutrophils # (A) 6.3 k/uL (1.3-7.7); Neutrophils % (A) 68 %; RBC 4.11 m/uL (4.30-5.90); RDW 12.9 % (11.5-15.5); WBC 9.2 k/uL (3.8-10.6); WBC (Perox) 9.74
[2016-12-24] MEDS: LEVOTHYROXINE 50 MCG TAB PO SCH (06:29)
[2016-12-24] MEDS: PANTOPRAZOLE 40 MG TABLET PO SCH (06:29)
[2016-12-24 06:43] LABS: ALT 50 U/L (21-72); AST 55 U/L (17-59); Alkaline Phosphatase 55 U/L (38-126); Anion Gap 10 mmol/L; Blood Urea Nitrogen 8 mg/dL (9-20); Calcium 9.3 mg/dL (8.4-10.2); Carbon Dioxide 26 mmol/L (22-30); Chloride 105 mmol/L (98-107); Glucose 104 mg/dL (74-99); Non-African American GFR(MDRD) >60 (>60 ml/min/1.73 sqM); Potassium 4.4 mmol/L (3.5-5.1); Sodium 141 mmol/L (137-145); Total Bilirubin 0.5 mg/dL (0.2-1.3); Total Protein 6.9 g/dL (6.3-8.2)
[2016-12-24 08:28] VITALS: RESP 16; TEMP 98.2
[2016-12-24] MEDS: ALBUTEROL NEBULIZED 2.5 MG/3 ML INHALATION SCH ×2 (08:35→11:45)
[2016-12-24] MEDS: IPRATROPIUM 0.5 MG/2.5 ML NEBU INHALATION SCH (08:35)
[2016-12-24] MEDS: NICOTINE 14MG/24HR PATCH TRANSDERM SCH (08:50)
[2016-12-24] MEDS: METOPROLOL TARTRATE 25 MG TAB PO SCH (08:50)
[2016-12-24] MEDS: ASPIRIN 81 MG CHEW PO SCH (08:50)
[2016-12-24] MEDS: LOSARTAN 25 MG TAB PO SCH (08:50)
[2016-12-24] MEDS: ATORVASTATIN 80 MG TAB PO SCH (08:50)
[2016-12-24] MEDS: PRASUGREL 10 MG TAB PO SCH (08:51)
--- NOTE | 2016-12-24 10:36 | P.PN ---
Subjective Principal diagnosis: Acute [place] This is a pleasant 56-year-old gentleman who presented to the hospital with a chest discomfort and ruled in for acute non-ST elevation myocardial infarction. He underwent heart catheterization and underwent successful stenting of the LAD and right coronary artery with a good angiographic results. He denies having any chest pain or discomfort or difficulty breathing. The right groin seems to be soft and nontender and with some bruises. He continues to be on dual antiplatelet therapy along with anti-ischemic medications. From the cardiovascular standpoint of view, the patient can be discharged home. Objective - Vital Signs Vital signs: Vital Signs Temp 98.2 F 12/24/16 07:35 Pulse 80 12/24/16 08:54 Resp 16 12/24/16 07:35 BP 136/81 12/24/16 07:35 Pulse Ox 94 L 12/24/16 07:35 Intake & Output 12/23/16 12/24/16 12/24/16 18:59 06:59 18:59 Intake Total 799 111 9758 Balance 989 967 1123 Weight 114.6 kg Intake: Oral 329 862 3052 Other: Voiding Method Toilet Toilet # Voids 2 2 1 # Bowel Movements 1 - Constitutional General appearance: Present: no acute distress - Respiratory Respiratory: bilateral: CTA - Cardiovascular Rhythm: regular Heart sounds: normal: S1, S2 - Labs CBC & Chem 7: 12/24/16 05:29 12/24/16 05:29 Labs: Abnormal Lab Results - Last 24 Hours (Table) 12/24/16 12/24/16 Range/Units 05:29 05:29 RBC 4.11 L (4.30-5.90) m/uL MCV 101.5 H (80.0-100.0) fL BUN 8 L (9-20) mg/dL Glucose 104 H (74-99) mg/dL Assessment and Plan Plan: Assessment Acute non-ST Status post PCI of the LAD and RCA History of smoking Plan Continue the patient on the current medical treatment The echocardiogram showed normal function The patient can be discharged home.
[2016-12-24 12:22] VITALS: BP 109/67; PULSE 60
--- NOTE | 2016-12-25 21:11 | DS ---
DATE OF ADMISSION: 12/21/2016 DATE OF DISCHARGE: 12/24/2016 I am covering for Dr. Chahal. FINAL DIAGNOSES: 1. Chest pain, possible acute anterior wall myocardial infarction status post cardiac catheterization and stenting of the left anterior descending coronary artery as well as the right coronary artery with troponin 10.900. 2. Elevated CK and CK-MB. 3. Hypomagnesemia. 4. History of nicotine dependence. 5. Increased random blood. 6. Increased AST. 7. History of ETOH. 8. Increased MCV. 9. Hypertension. 10. Hyperlipidemia. 11. History of hypothyroidism. 12. History of gastroesophageal reflux disease. 13. History of hernia repair. 14. History of colonoscopy. 15. Obesity with body mass index of 38.9. 16. FULL CODE. HISTORY OF PRESENT ILLNESS: This 56-year-old gentleman admitted with features of chest pain, acute myocardial infarction, patient underwent cardiac catheterization and stenting of the left anterior descending coronary artery and right coronary artery. Patient improved significantly. Patient also has multiple other medical issues, currently stable. Cardiology saw the patient. Medication adjusted. On exam, vital signs are stable. CARDIOVASCULAR: S1, S2 muffled. ABDOMEN: Soft. Nervous system: No focal deficits works. A 2-D echo showed ejection fraction around 55 to 60%. So the patient is being discharged in stable condition with guarded prognosis. DISCHARGE ADVICE AND MEDICATIONS: 1. Diet is cardiac. 2. Follow up with Dr. Itz Chahal in 1 to 2 days. 3. Follow-up with Dr. Reyez in one week. 4. Medications are Xanax 0.25 t.i.d. p.r.n. 5. Albuterol inhaler 2 puffs q.i.d. and p.r.n. 6. Aspirin 81 mg p.o. daily. 7. Lipitor 80 mg p.o. daily. 8. esmoprazole 20 mg p.o. daily. 9. Synthroid 15 mcg p.o. daily. 10. Cozaar 25 mg p.o. daily. 11. Metoprolol 25 mg p.o. b.i.d. 12. Habitrol 14 daily. 13. Nitroglycerin 0.4 sublingual p.r.n. 14. Effient 10 mg p.o. daily. Once again, the patient is being discharged in a stable condition with guarded prognosis. MTDD
== END 2016-12-24 13:38 | disposition home or self-care (01) | DRG 247 ==
LOC: EC 11:01 → 6SEL 12:22
PROVIDERS: ADMIT Family Medicine; ATTEND Family Medicine
PROC: B2151ZZ Fluoroscopy of Left Heart using Low Osmolar Contrast (ICD-10-PCS; principal; 2016-12-21 13:10)
PROC: 4A023N7 Measurement of Cardiac Sampling and Pressure, Left Heart, Percutaneous Approach (ICD-10-PCS; principal; 2016-12-21 13:10)
PROC: B2111ZZ Fluoroscopy of Multiple Coronary Arteries using Low Osmolar Contrast (ICD-10-PCS; principal; 2016-12-21 13:10)
PROC: 027135Z Dilation of Coronary Artery, Two Arteries with Two Drug-eluting Intraluminal Devices, Percutaneous Approach (ICD-10-PCS; 2016-12-21 16:30)
DX: I21.4 Non-ST elevation (NSTEMI) myocardial infarction (principal); E83.42 Hypomagnesemia; I10 Essential (primary) hypertension; E11.9 Type 2 diabetes mellitus without complications; E78.5 Hyperlipidemia, unspecified; I25.10 Atherosclerotic heart disease of native coronary artery without angina pectoris; E78.00 Pure hypercholesterolemia, unspecified; E03.9 Hypothyroidism, unspecified; E66.9 Obesity, unspecified; F17.200 Nicotine dependence, unspecified, uncomplicated; K21.9 Gastro-esophageal reflux disease without esophagitis; Z68.38 Body mass index [BMI] 38.0-38.9, adult; Z79.82 Long term (current) use of aspirin; Z79.899 Other long term (current) drug therapy; Z82.49 Family history of ischemic heart disease and other diseases of the circulatory system; Z83.3 Family history of diabetes mellitus; Z95.5 Presence of coronary angioplasty implant and graft
CPT/HCPCS: 36415; 71020; 80053; 80061; 80306; 81003; 82550; 82553; 83690; 83735; 84484; 85025; 85347; 85610; 85730; 93005; 93306; 93458; 94640; 96365; 96376; 99291

== ENCOUNTER → 2017-02-10 | Outpatient (CLI) | payer BC, OTHER | END | disposition home or self-care (01) | LOC: LABWHC1 07:06 | PROVIDERS: ATTEND Internal Medicine Cardiovascular Disease | DX: I25.10 Atherosclerotic heart disease of native coronary artery without angina pectoris (principal) | CPT/HCPCS: 36415; 83704 ==

== ENCOUNTER → 2017-04-24 | Outpatient (CLI) | payer BC ==
[2017-04-24 17:38] LABS: CH 33.3; CHCM 34.2; HCT 42.5 % (39.0-53.0); HDW 2.35; HGB 14.9 gm/dL (13.0-17.5); MCH 34.2 pg (25.0-35.0); MCV 97.7 fL (80.0-100.0); Mean Platelet Volume 7.4; RBC 4.35 m/uL (4.30-5.90); RDW 13.1 % (11.5-15.5); WBC 8.5 k/uL (3.8-10.6)
[2017-04-24 17:51] LABS: Anion Gap 10 mmol/L; Blood Urea Nitrogen 11 mg/dL (9-20); Carbon Dioxide 26 mmol/L (22-30); Chloride 104 mmol/L (98-107); Non-African American GFR(MDRD) >60 (>60 ml/min/1.73 sqM); Potassium 3.9 mmol/L (3.5-5.1); Sodium 140 mmol/L (137-145)
== END | disposition home or self-care (01) ==
LOC: LABPAT 17:11
PROVIDERS: ATTEND Internal Medicine
DX: Z01.812 Encounter for preprocedural laboratory examination (principal); I25.10 Atherosclerotic heart disease of native coronary artery without angina pectoris
CPT/HCPCS: 80051; 82565; 84520; 85027

== ENCOUNTER 2017-04-26 10:38 | Day surgery (SDC) | payer BC ==
[2017-04-24 16:05] VITALS: BMI 34.4
[~2017-04-26 10:38] MED LIST: ALPRAZolam 0.25 MG TAB PO PRN; ALPRAZolam 0.5 MG TAB PO PRN; ASPIRIN 325 MG TAB PO STA; ATORVASTATIN 80 MG TAB PO STA; NITROGLYCERIN SL TABS 0.4 MG TAB SUBLINGUAL PRN; SODIUM CHLORIDE 0.9% 1,000 ML in EMPTY BAG 1 BAG IV ONE
[2017-04-26 11:10] VITALS: RESP 16
[2017-04-26] MEDS ORDERED: SODIUM CHLORIDE 0.9% 1,000 ML IV ONE (11:15)
[2017-04-26] MEDS ORDERED: LIDOCAINE 2% INJ 20 MG/ML (20 ML MDV) ONE (12:23)
[2017-04-26] MEDS ORDERED: MIDAZOLAM 2 MG/2 ML VIAL ONE (12:23)
[2017-04-26] MEDS ORDERED: fentaNYL (PF) 50 MCG/ML 2 ML AMP ONE (12:23)
[2017-04-26] MEDS: fentaNYL (PF) 50 MCG/ML 2 ML AMP IVP ONE ×2 (12:51→13:07)
[2017-04-26] MEDS ORDERED: MIDAZOLAM 2 MG/2 ML VIAL IVP ONE (12:51)
[2017-04-26] MEDS ORDERED: LIDOCAINE 2% INJ 20 MG/ML SQ ONE (12:59)
[2017-04-26] MEDS ORDERED: NITROGLYCERIN 1000MCG/10ML SYRINGE INTRACORON ONE (13:14)
[2017-04-26] MEDS ORDERED: IOHEXOL 350 MG/ML 125ML BOTTLE INJ ONE (13:27)
[2017-04-26] MEDS ORDERED: RX INFO: IV CONTRAST WAS GIVEN 1 EACH MISC MISCELLANE PRN (13:27)
[2017-04-26] MEDS ORDERED: SODIUM CHLORIDE 0.9% 1,000 ML IV SCH (13:30)
[2017-04-26 17:14] VITALS: TEMP 97.8
[2017-04-26 17:16] VITALS: BP 144/68; PULSE 59
--- NOTE | 2017-04-27 08:42 | CC ---
Mr. Anthony is a 57-year-old gentleman who was seen in the office for the evaluation of chest pain. The patient is status post stent to the LAD and circumflex. The patient had a few episodes of chest discomfort with exertion suggestive of new onset of angina. In view of that, the patient was recommended to have cardiac catheterization to rule out any significant in-stent restenosis. PROCEDURE: The right groin was prepped and draped in the usual manner and the skin was infiltrated with 2% Xylocaine. The right femoral artery was entered using Seldinger technique and #6 [place] sheath was placed in. Selective coronary angiography was then performed in multiple projections and left ventricular pressures were obtained. The patient tolerated the procedure well. Total sedation time was 26 minutes. HEMODYNAMICS: Left ventricular end-diastolic pressure is 16 mmHg prior to angiography. No gradient is noted across the aortic valve. SELECTIVE CORONARY ANGIOGRAPHY: Right coronary artery is a normal caliber blood vessel. There was a smooth narrowing in the proximal right coronary artery prior to the stent. After intracoronary nitroglycerin, the diameter of the proximal right coronary artery improved and it was secondary to spasm. No in-stent restenosis is noted. Left main coronary artery is normal and patent. LAD is a good caliber blood vessel and the mid LAD has a patent stent. There is no significant obstructive CAD. Circumflex coronary artery is normal. FINAL IMPRESSION: There was evidence of spasm in the proximal right coronary artery proximal to the stent placement, which totally resolved after intracoronary nitroglycerin. There is no hemodynamically significant stenosis. The stent in the LAD is patent. Circumflex coronary artery is normal. We will recommend to continue the patient on medical treatment. ELAINA
[2017-04-27] MEDS ORDERED: ISOSORBIDE MONONITRATE ER 60 MG TAB.ER.24H PO SCH (09:00)
== END 2017-04-26 18:30 | disposition home or self-care (01) ==
LOC: CATHCVL 10:38 → 3OBS 13:21 → CATHCVL 18:30
PROVIDERS: ATTEND Internal Medicine Cardiovascular Disease
DX: I25.10 Atherosclerotic heart disease of native coronary artery without angina pectoris (principal); Z95.5 Presence of coronary angioplasty implant and graft; R07.89 Other chest pain; I25.2 Old myocardial infarction; I10 Essential (primary) hypertension; E78.2 Mixed hyperlipidemia; Z82.49 Family history of ischemic heart disease and other diseases of the circulatory system; Z79.899 Other long term (current) drug therapy; Z79.82 Long term (current) use of aspirin; Z87.891 Personal history of nicotine dependence
CPT/HCPCS: 93458; C1760; C1894; C1769; J2001; J2250; J3010; Q9967

== ENCOUNTER 2017-10-31 04:17 | Emergency (ER) | payer BC ==
[2017-10-31] MEDS ORDERED: IPRATROPIUM-ALBUTEROL 3 ML NEB INHALATION STA (04:45)
[2017-10-31 04:47] VITALS: TEMP 101.9
--- NOTE | 2017-10-31 05:39 | ED ---
URI HPI - General Chief Complaint: Upper Respiratory Infection Stated Complaint: CARLIN Time Seen by Provider: 10/31/17 05:17 Source: patient Mode of arrival: ambulatory Limitations: no limitations - History of Present Illness Initial Comments: Patient started developing cough and congestion with rhinorrhea yesterday. This worsened over the course of the night and into this morning. He also has had a couple of episodes of posttussive gagging and emesis. Denies other symptoms area developed fever just prior to coming in here today. MD Complaint: cough, rhinorrhea, nasal congestion Onset/Timin -: hour(s) Improves With: nothing Worsens With: nothing Associated Symptoms: fever, myalgias, rhinorrhea, nasal congestion, cough, vomiting - Related Data Home Medications Medication Instructions Recorded Confirmed Esomeprazole Magnesium [NexIUM] 20 mg PO DAILY 12/21/16 04/26/17 Levothyroxine Sodium [Synthroid] 50 mcg PO DAILY 12/21/16 04/26/17 Losartan [Cozaar] 25 mg PO DAILY 12/21/16 04/26/17 Previous Rx's Medication Instructions Recorded ALPRAZolam [Xanax] 0.25 mg PO TID PRN #20 tab 12/24/16 Aspirin 81 mg PO DAILY #30 chew 12/24/16 Atorvastatin [Lipitor] 80 mg PO DAILY #30 tab 12/24/16 Metoprolol Tartrate [Lopressor] 25 mg PO BID #60 tab 12/24/16 Nitroglycerin Sl Tabs [Nitrostat] 0.4 mg SUBLINGUAL Q5M PRN #20 tab 12/24/16 Prasugrel [Effient] 10 mg PO DAILY #30 tab 12/24/16 Isosorbide Mononitrate ER [Imdur] 60 mg PO DAILY #90 tab 04/26/17 Albuterol Inhaler [Ventolin Hfa 1 - 2 puff INHALATION Q6HR PRN #1 10/31/17 Inhaler] inhaler Oseltamivir [Tamiflu] 75 mg PO Q12HR #10 cap 10/31/17 Allergies Allergy/AdvReac Type Severity Reaction Status Date / Time No Known Allergies Allergy Verified 04/24/17 15:46 Review of Systems ROS Statement: Those systems with pertinent positive or pertinent negative responses have been documented in the HPI. ROS Other: All systems not noted in ROS Statement are negative. Constitutional: Reports: fever, chills. Denies: weakness ENT: Reports: congestion Respiratory: Reports: as per HPI, cough. Denies: dyspnea, wheezes, hemoptysis Cardiovascular: Denies: chest pain Gastrointestinal: Reports: as per HPI, vomiting. Denies: abdominal pain, diarrhea Musculoskeletal: Denies: back pain Skin: Denies: rash Neurological: Denies: headache, weakness, numbness Past Medical History Past Medical History: Chest Pain / Angina, GERD/Reflux, Hyperlipidemia, Hypertension, Myocardial Infarction ([place]), Thyroid Disorder Additional Past Medical History / Comment(s): hypothyroid. 2 stents. Last Myocardial Infarction Date:: December 2016 History of Any Multi-Drug Resistant Organisms: None Reported Past Surgical History: Heart Catheterization, Heart Catheterization With Stent, Hernia Repair Additional Past Surgical History / Comment(s): colonoscopy,EGD Past Anesthesia/Blood Transfusion Reactions: No Reported Reaction Date of Last Stent Placement:: December 2016 Past Psychological History: No Psychological Hx Reported Smoking Status: Current every day smoker Past Alcohol Use History: Occasional Past Drug Use History: None Reported - Past Family History Mother Family Medical History: Coronary Artery Disease (CAD), Diabetes Mellitus, Myocardial Infarction ([place]) General Exam Limitations: no limitations General appearance: alert, in no apparent distress Head exam: Present: atraumatic, normocephalic Eye exam: Present: normal appearance Respiratory exam: Present: wheezes (Mild expiratory wheeze.). Absent: respiratory distress, rales, rhonchi, stridor Cardiovascular Exam: Present: regular rate, normal rhythm, normal heart sounds. Absent: systolic murmur, diastolic murmur, rubs, gallop GI/Abdominal exam: Present: soft. Absent: distended, tenderness, guarding, rebound, mass Extremities exam: Present: normal inspection, normal capillary refill. Absent: pedal edema, calf tenderness Back exam: Present: normal inspection. Absent: CVA tenderness (R), CVA tenderness (L) Neurological exam: Present: alert Skin exam: Present: warm, dry, intact, normal color. Absent: rash Course Vital Signs 10/31/17 10/31/17 10/31/17 04:44 04:45 04:53 Temperature 101.9 F H Pulse Rate 93 88 92 Respiratory 20 Rate Blood Pressure 156/72 O2 Sat by Pulse 95 Oximetry 01/24/18 06:38 Temperature 101.9 F H Pulse Rate 89 Respiratory 18 Rate Blood Pressure 119/59 O2 Sat by Pulse 94 L Oximetry Medical Decision Making - Lab Data Lab Results 10/31/17 Range/Units 04:50 Influenza Type A RNA Not Detected (Not Detectd) Influenza Type B (PCR) Detected H (Not Detectd) Disposition Clinical Impression: Influenza Disposition: HOME SELF-CARE Condition: Good Instructions: Influenza (ED) Prescriptions: Albuterol Inhaler [Ventolin Hfa Inhaler] 1 - 2 puff INHALATION Q6HR PRN #1 inhaler PRN Reason: Wheezing Oseltamivir [Tamiflu] 75 mg PO Q12HR #10 cap Referrals: Itz Chahal DO [Primary Care Provider] - 1-2 days
--- NOTE | 2017-10-31 06:08 | XR ---
EXAM: XR Chest, 2 Views CLINICAL HISTORY: Reason: Pain TECHNIQUE: Frontal and lateral views of the chest. COMPARISON: 12/21/16 FINDINGS: Lungs: No lobar consolidation or pulmonary edema. Pleural space: Unremarkable. No pneumothorax. Heart: Unremarkable. No cardiomegaly. Mediastinum: Unremarkable. Bones/joints: Unremarkable. IMPRESSION: No lobar consolidation or pulmonary edema.
[2017-10-31] MEDS ORDERED: ALBUTEROL NEBULIZED 2.5 MG/3 ML INHALATION STA (06:27)
[2017-10-31 06:38] VITALS: BP 119/59; RESP 18
[2017-10-31] MEDS ORDERED: ACETAMINOPHEN TAB 500 MG TAB PO STA (06:41)
[2017-10-31] MEDS ORDERED: IBUPROFEN 800 MG TAB PO STA (06:42)
[2017-10-31 07:03] VITALS: PULSE 88
== END 2017-10-31 07:21 | disposition home or self-care (01) ==
LOC: EC 04:17
DX: J11.1 Influenza due to unidentified influenza virus with other respiratory manifestations (principal); K21.9 Gastro-esophageal reflux disease without esophagitis; E03.9 Hypothyroidism, unspecified; I10 Essential (primary) hypertension; F17.200 Nicotine dependence, unspecified, uncomplicated; Z79.899 Other long term (current) drug therapy
CPT/HCPCS: 71046; 87502; 94640; 99284

== ENCOUNTER 2018-07-27 12:52 | Inpatient (IN) | payer BC ==
[2018-07-27] MEDS ORDERED: IPRATROPIUM-ALBUTEROL 3 ML NEB INHALATION STA (13:20)
[2018-07-27] MEDS ORDERED: methylPREDNISolone SOD SUCCI 125 MG/2 ML VIAL IV STA (13:21)
--- NOTE | 2018-07-27 13:30 | ED ---
SOB HPI - General Chief Complaint: Shortness of Breath Stated Complaint: Diff Breathing Time Seen by Provider: 07/27/18 13:08 Source: patient, RN notes reviewed Mode of arrival: ambulatory Limitations: no limitations - History of Present Illness Initial Comments: 58-year-old male presents emergency room chief complaint of cough, shortness of breath. Patient states symptoms started yesterday. Patient states his throat, nasal congestion. Patient states he tried some old healing is no relief. Patient states is a former smoker stuck in October. He states he was never diagnosed with COPD. Patient states he did have 2 episodes of vomiting. No abdominal pain. Patient had prior cardiac disease including PA a few years ago. He states he has no pain in his chest just states that it feels heavy is a shortness of breath. Patient said no sick contacts. - Related Data Home Medications Medication Instructions Recorded Confirmed Esomeprazole Magnesium [NexIUM] 20 mg PO DAILY 12/21/16 04/26/17 Levothyroxine Sodium [Synthroid] 50 mcg PO DAILY 12/21/16 04/26/17 Losartan [Cozaar] 25 mg PO DAILY 12/21/16 04/26/17 Previous Rx's Medication Instructions Recorded ALPRAZolam [Xanax] 0.25 mg PO TID PRN #20 tab 12/24/16 Aspirin 81 mg PO DAILY #30 chew 12/24/16 Atorvastatin [Lipitor] 80 mg PO DAILY #30 tab 12/24/16 Metoprolol Tartrate [Lopressor] 25 mg PO BID #60 tab 12/24/16 Nitroglycerin Sl Tabs [Nitrostat] 0.4 mg SUBLINGUAL Q5M PRN #20 tab 12/24/16 Prasugrel [Effient] 10 mg PO DAILY #30 tab 12/24/16 Isosorbide Mononitrate ER [Imdur] 60 mg PO DAILY #90 tab 04/26/17 Albuterol Inhaler [Ventolin Hfa 1 - 2 puff INHALATION Q6HR PRN #1 10/31/17 Inhaler] inhaler Oseltamivir [Tamiflu] 75 mg PO Q12HR #10 cap 10/31/17 Allergies Allergy/AdvReac Type Severity Reaction Status Date / Time No Known Allergies Allergy Verified 07/27/18 13:03 Review of Systems ROS Statement: Those systems with pertinent positive or pertinent negative responses have been documented in the HPI. ROS Other: All systems not noted in ROS Statement are negative. Past Medical History Past Medical History: Chest Pain / Angina, GERD/Reflux, Hyperlipidemia, Hypertension, Myocardial Infarction ([place]), Thyroid Disorder Additional Past Medical History / Comment(s): hypothyroid. 2 stents. Last Myocardial Infarction Date:: December 2016 History of Any Multi-Drug Resistant Organisms: None Reported Past Surgical History: Heart Catheterization, Heart Catheterization With Stent, Hernia Repair Additional Past Surgical History / Comment(s): colonoscopy,EGD Past Anesthesia/Blood Transfusion Reactions: No Reported Reaction Date of Last Stent Placement:: December 2016 Past Psychological History: No Psychological Hx Reported Smoking Status: Former smoker Past Alcohol Use History: Occasional Past Drug Use History: None Reported - Past Family History Mother Family Medical History: Coronary Artery Disease (CAD), Diabetes Mellitus, Myocardial Infarction ([place]) General Exam Limitations: no limitations General appearance: alert, in no apparent distress Head exam: Present: atraumatic, normocephalic, normal inspection Eye exam: Present: normal appearance, PERRL, EOMI. Absent: scleral icterus, conjunctival injection, periorbital swelling ENT exam: Present: normal exam, normal oropharynx, mucous membranes moist Neck exam: Present: normal inspection. Absent: tenderness, meningismus, lymphadenopathy Respiratory exam: Present: respiratory distress (Mild/moderate), wheezes. Absent: normal lung sounds bilaterally, rales, rhonchi, stridor, prolonged expiratory Cardiovascular Exam: Present: regular rate, normal rhythm, normal heart sounds. Absent: systolic murmur, diastolic murmur, rubs, gallop, clicks GI/Abdominal exam: Present: soft, normal bowel sounds. Absent: distended, tenderness, guarding, rebound, rigid Course Vital Signs 07/27/18 07/27/18 07/27/18 13:01 13:37 14:05 Temperature 98.4 F Pulse Rate 90 86 110 H Respiratory 26 H Rate Blood Pressure 195/99 O2 Sat by Pulse 93 L Oximetry Medical Decision Making - Medical Decision Making 58 show male present emergency department for shortness of breath. Patient continues to have shortness breath though he feels improved after treatments. Patient continues to have bronchospasms will be admitted for COPD exacerbation. - Lab Data Result diagrams: 07/27/18 13:33 07/27/18 13:33 Lab Results 10/07/27/18 07/27/18 Range/Units 13:33 13:33 13:33 WBC 7.7 (3.8-10.6) k/uL RBC 4.38 (4.30-5.90) m/uL Hgb 14.8 (13.0-17.5) gm/dL Hct 44.4 (39.0-53.0) % MCV 101.2 H (80.0-100.0) fL MCH 33.9 (25.0-35.0) pg MCHC 33.5 (31.0-37.0) g/dL RDW 13.0 (11.5-15.5) % Plt Count 168 (150-450) k/uL Neutrophils % 83 % Lymphocytes % 10 % Monocytes % 5 % Eosinophils % 1 % Basophils % 0 % Neutrophils # 6.4 (1.3-7.7) k/uL Lymphocytes # 0.7 L (1.0-4.8) k/uL Monocytes # 0.4 (0-1.0) k/uL Eosinophils # 0.1 (0-0.7) k/uL Basophils # 0.0 (0-0.2) k/uL PT (9.0-12.0) sec INR (<1.2) APTT (22.0-30.0) sec Sodium 139 (137-145) mmol/L Potassium 4.3 (3.5-5.1) mmol/L Chloride 105 (98-107) mmol/L Carbon Dioxide 24 (22-30) mmol/L Anion Gap 10 mmol/L BUN 12 (9-20) mg/dL Creatinine 0.67 (0.66-1.25) mg/dL Est GFR (CKD-EPI)AfAm >90 (>60 ml/min/1.73 sqM) Est GFR (CKD-EPI)NonAf >90 (>60 ml/min/1.73 sqM) Glucose 103 H (74-99) mg/dL Plasma Lactic Acid Rehtt (0.7-2.0) mmol/L Calcium 9.2 (8.4-10.2) mg/dL Magnesium 1.0 L (1.6-2.3) mg/dL Total Bilirubin 0.6 (0.2-1.3) mg/dL AST 63 H (17-59) U/L ALT 50 (21-72) U/L Alkaline Phosphatase 51 (38-126) U/L Total Creatine Kinase 891 H (55-170) U/L CK-MB (CK-2) 22.4 H (0.0-2.4) ng/mL CK-MB (CK-2) Rel Index 2.5 Troponin I <0.012 (0.000-0.034) ng/mL NT-Pro-B Natriuret Pep pg/mL Total Protein 7.4 (6.3-8.2) g/dL Albumin 4.2 (3.5-5.0) g/dL 07/27/18 07/27/18 07/27/18 Range/Units 13:33 13:33 13:33 WBC (3.8-10.6) k/uL RBC (4.30-5.90) m/uL Hgb (13.0-17.5) gm/dL Hct (39.0-53.0) % MCV (80.0-100.0) fL MCH (25.0-35.0) pg MCHC (31.0-37.0) g/dL RDW (11.5-15.5) % Plt Count (150-450) k/uL Neutrophils % % Lymphocytes % % Monocytes % % Eosinophils % % Basophils % % Neutrophils # (1.3-7.7) k/uL Lymphocytes # (1.0-4.8) k/uL Monocytes # (0-1.0) k/uL Eosinophils # (0-0.7) k/uL Basophils # (0-0.2) k/uL PT 12.0 (9.0-12.0) sec INR 1.3 H (<1.2) APTT 24.0 (22.0-30.0) sec Sodium (137-145) mmol/L Potassium (3.5-5.1) mmol/L Chloride (98-107) mmol/L Carbon Dioxide (22-30) mmol/L Anion Gap mmol/L BUN (9-20) mg/dL Creatinine (0.66-1.25) mg/dL Est GFR (CKD-EPI)AfAm (>60 ml/min/1.73 sqM) Est GFR (CKD-EPI)NonAf (>60 ml/min/1.73 sqM) Glucose (74-99) mg/dL Plasma Lactic Acid Rhett 1.1 (0.7-2.0) mmol/L Calcium (8.4-10.2) mg/dL Magnesium (1.6-2.3) mg/dL Total Bilirubin (0.2-1.3) mg/dL AST (17-59) U/L ALT (21-72) U/L Alkaline Phosphatase (38-126) U/L Total Creatine Kinase (55-170) U/L CK-MB (CK-2) (0.0-2.4) ng/mL CK-MB (CK-2) Rel Index Troponin I (0.000-0.034) ng/mL NT-Pro-B Natriuret Pep 656 pg/mL Total Protein (6.3-8.2) g/dL Albumin (3.5-5.0) g/dL Disposition Clinical Impression: COPD (chronic obstructive pulmonary disease), Hypoxic Disposition: ADMITTED IP TO THIS HOSP Condition: Fair Referrals: Itz Chahal DO [Primary Care Provider] - 1-2 days
[2018-07-27 14:10] LABS: Basophils % (A) 0 %; Eosinophils # (A) 0.1 k/uL (0-0.7); Eosinophils % (A) 1 %; HCT 44.4 % (39.0-53.0); HGB 14.8 gm/dL (13.0-17.5); Lymphocytes # (A) 0.7 k/uL (1.0-4.8); Lymphocytes % (A) 10 %; MCH 33.9 pg (25.0-35.0); MCHC 33.5 g/dL (31.0-37.0); MCV 101.2 fL (80.0-100.0); Mean Platelet Volume 7.3; Monocytes # (A) 0.4 k/uL (0-1.0); Monocytes % (A) 5 %; Neutrophils # (A) 6.4 k/uL (1.3-7.7); Neutrophils % (A) 83 %; Platelet Count 168 k/uL (150-450); RBC 4.38 m/uL (4.30-5.90); WBC 7.7 k/uL (3.8-10.6)
[2018-07-27 14:19] LABS: Albumin 4.2 g/dL (3.5-5.0); Anion Gap 10 mmol/L; Blood Urea Nitrogen 12 mg/dL (9-20); Calcium 9.2 mg/dL (8.4-10.2); Carbon Dioxide 24 mmol/L (22-30); Chloride 105 mmol/L (98-107); Glucose 103 mg/dL (74-99); Sodium 139 mmol/L (137-145); Total Bilirubin 0.6 mg/dL (0.2-1.3); Total Protein 7.4 g/dL (6.3-8.2)
[2018-07-27 14:22] LABS: ALT 50 U/L (21-72); AST 63 U/L (17-59); Alkaline Phosphatase 51 U/L (38-126); Potassium 4.3 mmol/L (3.5-5.1)
[2018-07-27 14:25] LABS: Creatine Kinase 891 U/L (55-170)
[2018-07-27 14:26] LABS: INR 1.3 (<1.2)
--- NOTE | 2018-07-27 14:30 | XR ---
EXAMINATION TYPE: XR chest 2V DATE OF EXAM: 07/27/2018 COMPARISON: 10/31/2017 HISTORY: 58 year-old male shortness of breath, chest pain, difficulty breathing TECHNIQUE: PA and lateral views FINDINGS: The heart is upper limits of normal in size. Aorta within normal limits. Mild diffuse interstitial pr ominence. No consolidation or pleural effusion. IMPRESSION: Similar borderline heart size. Chronic changes, possible chronic bronchitis/asthma. No acute change o therwise seen.
[2018-07-27 14:38] LABS: Creatine Kinase MB 22.4 ng/mL (0.0-2.4); Troponin I <0.012 ng/mL (0.000-0.034)
[2018-07-27] MEDS ORDERED: ALBUTEROL NEBULIZED 2.5 MG/3 ML INHALATION STA (15:29)
[2018-07-27] MEDS ORDERED: ALBUTEROL NEBULIZED 2.5 MG/3 ML INHALATION PRN (15:30)
[2018-07-27] MEDS ORDERED: MAGNESIUM OXIDE 400 MG TAB PO STA (17:51)
[2018-07-27] MEDS ORDERED: MAGNESIUM SULFATE-D5W PMX 1 GM in DEXTROSE/WATER 1 100ML.BAG IVPB ONE (17:53)
[2018-07-27] MEDS: IPRATROPIUM-ALBUTEROL 3 ML NEB INHALATION SCH ×2 (17:57→20:18)
[2018-07-27] MEDS: ATORVASTATIN 80 MG TAB PO SCH (23:00)
[2018-07-27] MEDS: methylPREDNISolone SOD SUCCI 125 MG/2 ML VIAL IV SCH (23:00)
[2018-07-27 23:09] VITALS: BMI 38.3
[2018-07-28] MEDS: methylPREDNISolone SOD SUCCI 125 MG/2 ML VIAL IV SCH ×2 (01:32→05:12)
[2018-07-28] MEDS: METOPROLOL TARTRATE 25 MG TAB PO SCH ×3 (01:32→20:35)
[2018-07-28] MEDS: IPRATROPIUM-ALBUTEROL 3 ML NEB INHALATION SCH ×4 (08:20→19:14)
[2018-07-28] MEDS: AZITHROMYCIN 500 MG TAB PO SCH (09:12)
[2018-07-28] MEDS ORDERED: NITROGLYCERIN SL TABS 0.4 MG TAB SUBLINGUAL PRN (11:21)
[2018-07-28] MEDS ORDERED: Magnesium Replacement Protocol 1 EACH MISC MISCELLANE PRN (12:23)
--- NOTE | 2018-07-28 12:51 | P.HPIM ---
History of Present Illness 58-year-old came in with complaints of shortness of breath cough unable to bring up anything never diagnosed with COPD used to smoke until recently quit smoking a few months ago. Does not use any oxygen at home denied any fever chills chest x-ray did not show any pneumonic process, sputum cultures will be obtained. Patient is cleared doing much better with breathing treatments and the systemic steroids. Wanted to go home. Patient is still wheezing quite a bit of upon exam because of which I recommended him to stay one more night possibility of discharge tomorrow. Patient had history of coronary artery disease with stent about one and half year ago continues to be in do antiplatelet therapy. Review of Systems REVIEW OF SYSTEMS: CONSTITUTIONAL: No fever, no malaise, no fatigue. HEENT: No recent visual problems or hearing problems. Denied any sore throat. CARDIOVASCULAR: No chest pain, orthopnea, PND, no palpitations, no syncope. PULMONARY: no hemoptysis. GASTROINTESTINAL: No diarrhea, no nausea, no vomiting, no abdominal pain. Normoactive bowel sounds. NEUROLOGICAL: No headaches, no weakness, no numbness. HEMATOLOGICAL: Denies any bleeding or petechiae. GENITOURINARY: Denies any burning micturition, frequency, or urgency. MUSCULOSKELETAL/RHEUMATOLOGICAL: Denies any joint pain, swelling, or any muscle pain. ENDOCRINE: Denies any polyuria or polydipsia. The rest of the 14-point review of systems is negative. Past Medical History Past Medical History: Chest Pain / Angina, GERD/Reflux, Hyperlipidemia, Hypertension, Myocardial Infarction (NM), Thyroid Disorder Additional Past Medical History / Comment(s): hypothyroid. 2 stents. Last Myocardial Infarction Date:: December 2016 History of Any Multi-Drug Resistant Organisms: None Reported Past Surgical History: Heart Catheterization, Heart Catheterization With Stent, Hernia Repair Additional Past Surgical History / Comment(s): colonoscopy,EGD Past Anesthesia/Blood Transfusion Reactions: No Reported Reaction Date of Last Stent Placement:: December 2016 Past Psychological History: No Psychological Hx Reported Smoking Status: Former smoker Past Alcohol Use History: Occasional Additional Past Alcohol Use History / Comment(s): down to 1/2ppd, trying to quit , has smoked since teens Past Drug Use History: None Reported - Past Family History Mother Family Medical History: Coronary Artery Disease (CAD), Diabetes Mellitus, Myocardial Infarction (NM) Medications and Allergies Home Medications Medication Instructions Recorded Confirmed Type Levothyroxine Sodium [Synthroid] 50 mcg PO DAILY 12/21/16 07/27/18 History Losartan [Cozaar] 25 mg PO DAILY 12/21/16 07/27/18 History Aspirin 81 mg PO DAILY #30 chew 12/24/16 07/27/18 Rx Metoprolol Tartrate [Lopressor] 25 mg PO BID #60 tab 12/24/16 07/27/18 Rx Nitroglycerin Sl Tabs [Nitrostat] 0.4 mg SUBLINGUAL Q5M PRN #20 tab 12/24/16 Rx Prasugrel [Effient] 10 mg PO DAILY #30 tab 12/24/16 07/27/18 Rx Isosorbide Mononitrate ER [Imdur] 60 mg PO DAILY #90 tab 04/26/17 07/27/18 Rx Atorvastatin [Lipitor] 80 mg PO HS 07/27/18 07/27/18 History Omeprazole 20 mg PO DAILY 07/27/18 07/27/18 History Allergies Allergy/AdvReac Type Severity Reaction Status Date / Time No Known Allergies Allergy Verified 07/27/18 15:55 Physical Exam Vitals: Vital Signs Temp Pulse Pulse Pulse Resp BP BP 07/28/18 11:55 76 07/28/18 11:44 76 07/28/18 09:14 17 07/28/18 08:38 80 07/28/18 08:21 76 07/28/18 07:45 98.5 F 76 18 156/88 07/27/18 22:55 98.9 F 94 94 20 143/83 07/27/18 20:30 100 07/27/18 20:18 100 07/27/18 18:20 99.6 F 100 18 156/90 07/27/18 18:10 98.0 F 99 16 139/80 07/27/18 18:00 100 20 144/93 07/27/18 17:50 98 18 144/93 07/27/18 17:40 98 22 144/93 07/27/18 17:30 105 H 23 144/83 07/27/18 17:20 120 H 29 H 144/83 07/27/18 17:10 109 H 25 H 144/83 07/27/18 17:00 111 H 21 139/87 07/27/18 16:50 107 H 16 139/87 07/27/18 16:40 105 H 23 139/87 07/27/18 16:30 107 H 24 145/84 07/27/18 16:00 113 H 16 151/88 07/27/18 15:50 112 H 21 168/103 07/27/18 15:46 100 07/27/18 15:40 108 H 22 168/103 07/27/18 15:35 100 07/27/18 15:30 107 H 26 H 168/89 07/27/18 15:20 112 H 26 H 168/89 07/27/18 15:00 108 H 25 H 195/95 07/27/18 14:30 112 H 8 L 203/111 07/27/18 14:05 110 H 07/27/18 14:00 99 29 H 194/111 07/27/18 13:50 90 30 H 194/111 07/27/18 13:40 86 21 194/111 07/27/18 13:37 86 07/27/18 13:30 87 26 H 195/104 07/27/18 13:20 87 34 H 195/104 07/27/18 13:10 195/104 07/27/18 13:08 07/27/18 13:01 98.4 F 90 26 H 195/99 07/27/18 13:00 26 H Pulse Ox 07/28/18 11:55 07/28/18 11:44 07/28/18 09:14 93 L 07/28/18 08:38 07/28/18 08:21 07/28/18 07:45 93 L 07/27/18 22:55 07/27/18 20:30 07/27/18 20:18 07/27/18 18:20 94 L 07/27/18 18:10 93 L 07/27/18 18:00 93 L 18 17:50 93 L 18 17:40 93 L 07/27/18 17:30 91 L 1020/18 17:20 90 L 1020/18 17:10 92 L 20/18 17:00 92 L 20/18 16:50 92 L 20/18 16:40 92 L 20/18 16:30 92 L 07/27/18 16:00 92 L 07/27/18 15:50 93 L 07/27/18 15:46 07/27/18 15:40 94 L 07/27/18 15:35 07/27/18 15:30 90 L 07/27/18 15:20 91 L 07/27/18 15:00 88 L 07/27/18 14:30 91 L 07/27/18 14:05 07/27/18 14:00 97 07/27/18 13:50 98 07/27/18 13:40 98 07/27/18 13:37 07/27/18 13:30 95 07/27/18 13:20 95 07/27/18 13:10 95 07/27/18 13:08 92 L 07/27/18 13:01 93 L 07/27/18 13:00 Intake and Output 07/27/18 07/28/18 07/28/18 22:59 06:59 14:59 Intake Total 100 Balance 100 Intake: Intake, IV Titration 100 Amount Magnesium Sulfate-D5w Pmx 100 1 gm In Dextrose/Water 1 100ml.bag @ 100 mls/hr IVPB ONCE ONE Rx#: [id number] Other: Weight 124.738 kg PHYSICAL EXAMINATION: GENERAL: The patient is alert and oriented x3, not in any acute distress. Well developed, well nourished. HEENT: Pupils are round and equally reacting to light. EOMI. No scleral icterus. No conjunctival pallor. Normocephalic, atraumatic. No pharyngeal erythema. No thyromegaly. CARDIOVASCULAR: S1 and S2 present. No murmurs, rubs, or gallops. PULMONARY: Significant expiratory wheezing limited air entry into bilateral lung gonzalez. ABDOMEN: Soft, nontender, nondistended, normoactive bowel sounds. No palpable organomegaly. MUSCULOSKELETAL: No joint swelling or deformity. EXTREMITIES: No cyanosis, clubbing, or pedal edema. NEUROLOGICAL: Gross neurological examination did not reveal any focal deficits. SKIN: No rashes. Results CBC & Chem 7: 07/27/18 13:33 07/27/18 13:33 Labs: Abnormal Lab Results - Last 24 Hours (Table) 07/27/18 07/27/18 07/27/18 Range/Units 13:33 13:33 13:33 MCV 101.2 H (80.0-100.0) fL Lymphocytes # 0.7 L (1.0-4.8) k/uL INR (<1.2) Glucose 103 H (74-99) mg/dL Magnesium 1.0 L (1.6-2.3) mg/dL AST 63 H (17-59) U/L Total Creatine Kinase 891 H (55-170) U/L CK-MB (CK-2) 22.4 H (0.0-2.4) ng/mL 07/27/18 07/27/18 Range/Units 13:33 22:54 MCV (80.0-100.0) fL Lymphocytes # (1.0-4.8) k/uL INR 1.3 H (<1.2) Glucose (74-99) mg/dL Magnesium 1.5 L (1.6-2.3) mg/dL AST (17-59) U/L Total Creatine Kinase (55-170) U/L CK-MB (CK-2) (0.0-2.4) ng/mL Thrombosis Risk Factor Assmnt - Choose All That Apply Any of the Below Risk Factors Present?: Yes Each Factor Represents 1 point: Age 41-60 years Other Risk Factors: No Other congenital or acquired thrombophilia - If yes, enter type in comment: No Thrombosis Risk Factor Assessment Total Risk Factor Score: 1 Thrombosis Risk Factor Assessment Level: Low Risk Assessment and Plan Plan: -Acute hypercapnic respiratory failure: Secondary to COPD exacerbation patient will be continued on breathing treatments and IV steroids will be switched to oral steroids -Coronary artery disease: Continue his home medications counseling regarding nicotine cessation was provided patient although recently quit smoking -Tracheobronchitis: -Hypertension -Hyperlipidemia -Gastroesophageal reflux disease -Hypothyroidism For above-mentioned chronic medical problems patient will be resumed and continued on appropriate home medications. There is significant clinical improvement patient probably can be discharged tomorrow
[2018-07-28] MEDS: MAGNESIUM SULFATE-D5W PMX 1 GM in DEXTROSE/WATER 1 100ML.BAG IVPB SCH ×2 (13:31→16:42)
[2018-07-28] MEDS: ISOSORBIDE MONONITRATE ER 60 MG TAB.ER.24H PO SCH (13:32)
[2018-07-28] MEDS: PRASUGREL 10 MG TAB PO SCH (13:32)
[2018-07-28] MEDS: predniSONE 20 MG TAB PO SCH (13:32)
[2018-07-28] MEDS: LOSARTAN 25 MG TAB PO SCH (13:32)
[2018-07-28] MEDS: ASPIRIN 81 MG PO SCH (13:32)
[2018-07-28] MEDS: PANTOPRAZOLE 40 MG TABLET PO SCH (13:35)
[2018-07-28] MEDS: ATORVASTATIN 80 MG TAB PO SCH (20:35)
[2018-07-29] MEDS ORDERED: LEVOTHYROXINE 50 MCG TAB PO SCH (06:30)
[2018-07-29] MEDS: IPRATROPIUM-ALBUTEROL 3 ML NEB INHALATION SCH ×2 (06:59→10:49)
[2018-07-29 07:29] VITALS: BP 118/66; RESP 16; TEMP 97.2
[2018-07-29] MEDS ORDERED: PANTOPRAZOLE 40 MG TABLET PO SCH (07:30)
[2018-07-29] MEDS: PANTOPRAZOLE 40 MG TABLET PO SCH (07:39)
[2018-07-29] MEDS: AZITHROMYCIN 500 MG TAB PO SCH (07:39)
[2018-07-29] MEDS: METOPROLOL TARTRATE 25 MG TAB PO SCH (07:39)
[2018-07-29] MEDS: PRASUGREL 10 MG TAB PO SCH (07:39)
[2018-07-29] MEDS: ASPIRIN 81 MG PO SCH (07:40)
[2018-07-29] MEDS: predniSONE 20 MG TAB PO SCH (07:40)
[2018-07-29] MEDS: LOSARTAN 25 MG TAB PO SCH (07:40)
[2018-07-29] MEDS: ISOSORBIDE MONONITRATE ER 60 MG TAB.ER.24H PO SCH (07:40)
[2018-07-29] MEDS ORDERED: ASPIRIN 81 MG PO SCH (09:00)
[2018-07-29] MEDS ORDERED: ISOSORBIDE MONONITRATE ER 60 MG TAB.ER.24H PO SCH (09:00)
[2018-07-29] MEDS ORDERED: PRASUGREL 10 MG TAB PO SCH (09:00)
[2018-07-29] MEDS ORDERED: predniSONE 20 MG TAB PO SCH (09:00)
[2018-07-29] MEDS ORDERED: LOSARTAN 25 MG TAB PO SCH (09:00)
--- NOTE | 2018-07-29 10:42 | P.DS ---
Providers Date of admission: 07/27/18 15:30 Expected date of discharge: 07/29/18 Attending physician: Itz Chahal Primary care physician: Itz Chahal [facility] Course: 07/28/2018-note per Dr. Velasquez 58-year-old came in with complaints of shortness of breath cough unable to bring up anything never diagnosed with COPD used to smoke until recently quit smoking a few months ago. Does not use any oxygen at home denied any fever chills chest x-ray did not show any pneumonic process, sputum cultures will be obtained. Patient is cleared doing much better with breathing treatments and the systemic steroids. Wanted to go home. Patient is still wheezing quite a bit of upon exam because of which I recommended him to stay one more night possibility of discharge tomorrow. Patient had history of coronary artery disease with stent about one and half year ago continues to be in do antiplatelet therapy. 07/29/2018 Patient seen and examined at the bedside. Patient states his breathing has improved. He is currently denying shortness of breath. He is anxious to be discharged home. He is on oral steroids. Patient states he has a nebulizer machine at home but does not have any medication for it. The patient also states he does not have any inhalers at home. Patient was deemed stable for discharge home today per Dr. Chahal DISCHARGE DIAGNOSIS: Acute exacerbation of chronic obstructive pulmonary disease, improved at discharge Tracheobronchitis, improved History of coronary artery disease Hypertension Hyperlipidemia GERD Hypothyroidism Nurse practitioner note has been reviewed by physician. Signing provider agrees with the documented findings, assessment, and plan of care. Patient Condition at Discharge: Stable Plan - Discharge Summary Discharge Rx Participant: No New Discharge Prescriptions: New Albuterol Inhaler [Ventolin Hfa Inhaler] 1 - 2 puff INHALATION RT-Q6H PRN #1 inhaler PRN Reason: Shortness Of Breath Azithromycin [Zithromax] 500 mg PO DAILY #2 tab predniSONE See Taper PO DIRECTED #30 tab Ipratropium-Albuterol Nebulize [Duoneb 0.5 mg-3 mg/3 ml Soln] 3 ml INHALATION QID #90 ampul.neb Continue Losartan [Cozaar] 25 mg PO DAILY Levothyroxine Sodium [Synthroid] 50 mcg PO DAILY Aspirin 81 mg PO DAILY #30 chew Metoprolol Tartrate [Lopressor] 25 mg PO BID #60 tab Nitroglycerin Sl Tabs [Nitrostat] 0.4 mg SUBLINGUAL Q5M PRN #20 tab PRN Reason: Chest Pain Prasugrel [Effient] 10 mg PO DAILY #30 tab Isosorbide Mononitrate ER [Imdur] 60 mg PO DAILY #90 tab Omeprazole 20 mg PO DAILY Atorvastatin [Lipitor] 80 mg PO HS Discharge Medication List Levothyroxine Sodium [Synthroid] 50 mcg PO DAILY 12/21/16 [History] Losartan [Cozaar] 25 mg PO DAILY 12/21/16 [History] Aspirin 81 mg PO DAILY #30 chew 12/24/16 [Rx] Metoprolol Tartrate [Lopressor] 25 mg PO BID #60 tab 12/24/16 [Rx] Nitroglycerin Sl Tabs [Nitrostat] 0.4 mg SUBLINGUAL Q5M PRN #20 tab 12/24/16 [Rx ] Prasugrel [Effient] 10 mg PO DAILY #30 tab 12/24/16 [Rx] Isosorbide Mononitrate ER [Imdur] 60 mg PO DAILY #90 tab 04/26/17 [Rx] Atorvastatin [Lipitor] 80 mg PO HS 07/27/18 [History] Omeprazole 20 mg PO DAILY 07/27/18 [History] Albuterol Inhaler [Ventolin Hfa Inhaler] 1 - 2 puff INHALATION RT-Q6H PRN #1 inhaler 07/29/18 [Rx] Azithromycin [Zithromax] 500 mg PO DAILY #2 tab 07/29/18 [Rx] Ipratropium-Albuterol Nebulize [Duoneb 0.5 mg-3 mg/3 ml Soln] 3 ml INHALATION QID #90 ampul.neb 07/29/18 [Rx] predniSONE See Taper PO DIRECTED #30 tab 07/29/18 [Rx] Follow up Appointment(s)/Referral(s): Itz Chahal DO [Primary Care Provider] - 1 Week Patient Instructions/Handouts: COPD (Chronic Obstructive Pulmonary Disease) (DC ), Hypomagnesemia (DC) Activity/Diet/Wound Care/Special Instructions: patient may be discharged after lunch Discharge Disposition: HOME SELF-CARE
[2018-07-29 10:59] VITALS: PULSE 76
== END 2018-07-29 13:32 | disposition home or self-care (01) | DRG 190 ==
LOC: EC 12:52 → 4SSUR 15:30
PROVIDERS: ADMIT Family Medicine; ATTEND Family Medicine
DX: J44.0 Chronic obstructive pulmonary disease with (acute) lower respiratory infection (principal); J96.01 Acute respiratory failure with hypoxia; J96.02 Acute respiratory failure with hypercapnia; J44.1 Chronic obstructive pulmonary disease with (acute) exacerbation; J40 Bronchitis, not specified as acute or chronic; E78.5 Hyperlipidemia, unspecified; I10 Essential (primary) hypertension; K21.9 Gastro-esophageal reflux disease without esophagitis; E03.9 Hypothyroidism, unspecified; I25.10 Atherosclerotic heart disease of native coronary artery without angina pectoris; I25.2 Old myocardial infarction; Z71.6 Tobacco abuse counseling; Z79.82 Long term (current) use of aspirin; Z79.899 Other long term (current) drug therapy; Z79.02 Long term (current) use of antithrombotics/antiplatelets; Z79.890 Hormone replacement therapy; Z95.5 Presence of coronary angioplasty implant and graft; Z87.891 Personal history of nicotine dependence; Z82.49 Family history of ischemic heart disease and other diseases of the circulatory system; Z83.3 Family history of diabetes mellitus
CPT/HCPCS: 36415; 71046; 80053; 82550; 82553; 83605; 83735; 83880; 84484; 85025; 85610; 85730; 87040; 93005; 94640; 96374; 99285

== ENCOUNTER 2019-04-12 19:19 | Emergency (ER) | payer BC ==
[2019-04-12 19:44] VITALS: RESP 18
[2019-04-12] MEDS ORDERED: DIPH,PERTUS(ACELL)TETVAC-LF 0.5 ML VIAL IM ONE (20:18)
[2019-04-12] MEDS ORDERED: LIDOCAINE 1% INJ 10MG/ML (20 ML MDV) SQ ONE (20:31)
--- NOTE | 2019-04-12 20:51 | CT ---
EXAMINATION TYPE: CT facial bones wo con DATE OF EXAM: 04/12/2019 COMPARISON: None HISTORY: Fall with facial injury CT DLP: 1347.3 mGycm Automated exposure control for dose reduction was used. TECHNIQUE: CT scan of the sinuses is performed without contrast, axial images are obtained, coronal r eformatted images are also reviewed. FINDINGS: The mandibular ring is intact. Temporomandibular joints appear normal. Zygomatic arches anushka ear normal. There is normal aeration of the paranasal sinuses. Nasal bone is intact. The maxilla appe ars intact. There is bilateral patency of the ostiomeatal complex. There is no evidence of a blowout fracture. The orbital margins are intact. There is no evidence of retro-orbital mass. IMPRESSION: Negative CT scan of the facial bones. No fracture seen.
--- NOTE | 2019-04-12 20:52 | CT ---
EXAMINATION TYPE: CT brain ana roberts con DATE OF EXAM: 04/12/2019 COMPARISON: None HISTORY: Fall with facial injury CT DLP: 1347.3 mGycm Automated exposure control for dose reduction was used. TECHNIQUE: CT scan of the head and cervical spine are performed without contrast. FINDINGS: Ventricles and sulci appear normal. There is no mass effect nor midline shift. There is n o sign of intracranial hemorrhage. Calvarium is intact. Cervical vertebra have normal alignment. Posterior elements are intact. There is anterior spurring at C3-4 and C4-5. Facet joints are intact. Skull base is intact. There is no evidence of cervical spine fracture. IMPRESSION: Negative CT scan of the brain. Negative CT scan cervical spine.
[2019-04-12 20:55] LABS: Glucose,Whole Blood 94 mg/dL (75-99)
--- NOTE | 2019-04-12 22:14 | ED ---
Fall HPI - General Source: patient, family, EMS Mode of arrival: EMS <Rocio Nazario - Last Filed: 04/13/19 19:00> <Shelbie Perry - Last Filed: 04/14/19 05:45> - General Chief Complaint: Fall Stated Complaint: ETOH, Fall Time Seen by Provider: 04/12/19 19:51 - History of Present Illness Initial Comments: 58-year-old male patient presents to the emergency department today for evaluation after having a fall. Patient is intoxicated and admits to drinking several beers today. Patient's brought him in for evaluation due to l aceration on his chin. Patient denies any current headache, blurred vision, double vision. Denies any pain to his teeth. He denies any injury to other parts of his body. Patient denies any neck pain, back pain, chest pain, shortness of breath, dizziness, weakness, abdominal pain, nausea, vomiting, or difficulties with bowel movements or urination. (Rocio Nazario) - Related Data Home Medications Medication Instructions Recorded Confirmed Levothyroxine Sodium [Synthroid] 50 mcg PO DAILY 12/21/16 07/27/18 Losartan [Cozaar] 25 mg PO DAILY 12/21/16 07/27/18 Atorvastatin [Lipitor] 80 mg PO HS 07/27/18 07/27/18 Omeprazole 20 mg PO DAILY 07/27/18 07/27/18 Previous Rx's Medication Instructions Recorded Aspirin 81 mg PO DAILY #30 chew 12/24/16 Metoprolol Tartrate [Lopressor] 25 mg PO BID #60 tab 12/24/16 Nitroglycerin Sl Tabs [Nitrostat] 0.4 mg SUBLINGUAL Q5M PRN #20 tab 12/24/16 Prasugrel [Effient] 10 mg PO DAILY #30 tab 12/24/16 Isosorbide Mononitrate ER [Imdur] 60 mg PO DAILY #90 tab 04/26/17 Albuterol Inhaler [Ventolin Hfa 1 - 2 puff INHALATION RT-Q6H PRN 07/29/18 Inhaler] #1 inhaler Azithromycin [Zithromax] 500 mg PO DAILY #2 tab 07/29/18 Ipratropium-Albuterol Nebulize 3 ml INHALATION QID #90 ampul.neb 07/29/18 [Duoneb 0.5 mg-3 mg/3 ml Soln] predniSONE See Taper PO DIRECTED #30 tab 07/29/18 Allergies Allergy/AdvReac Type Severity Reaction Status Date / Time No Known Allergies Allergy Verified 04/12/19 19:44 Review of Systems ROS Other: All systems not noted in ROS Statement are negative. <Rocio Nazario - Last Filed: 04/13/19 19:00> ROS Other: All systems not noted in ROS Statement are negative. <Shelbie Perry - Last Filed: 04/14/19 05:45> ROS Statement: Those systems with pertinent positive or pertinent negative responses have been documented in the HPI. Past Medical History Past Medical History: Chest Pain / Angina, GERD/Reflux, Hyperlipidemia, Hypertension, Myocardial Infarction ([place]), Thyroid Disorder Additional Past Medical History / Comment(s): hypothyroid. 2 stents. Last Myocardial Infarction Date:: December 2016 History of Any Multi-Drug Resistant Organisms: None Reported Past Surgical History: Heart Catheterization, Heart Catheterization With Stent, Hernia Repair Additional Past Surgical History / Comment(s): colonoscopy,EGD Past Anesthesia/Blood Transfusion Reactions: No Reported Reaction Date of Last Stent Placement:: December 2016 Past Psychological History: No Psychological Hx Reported Smoking Status: Former smoker Past Alcohol Use History: Occasional Past Drug Use History: None Reported - Past Family History Mother Family Medical History: Coronary Artery Disease (CAD), Diabetes Mellitus, Myocardial Infarction (CO) <Rocio Nazario - Last Filed: 04/13/19 19:00> General Exam General appearance: alert, in no apparent distress, appears intoxicated, other (Physical well-developed, well-nourished adult male patient in no acute distress. Vital signs upon presentation are temperature 98.0F, pulse 82, respirations 18, blood pressure 147/96, pulse ox 96% on room air.) Head exam: Present: atraumatic, normocephalic, normal inspection Eye exam: Present: normal appearance, PERRL, EOMI. Absent: scleral icterus, conjunctival injection, nystagmus, periorbital swelling ENT exam: Present: normal oropharynx, mucous membranes moist, other (Patient has 1 cm laceration noted to the right lower lip, this is through and through there is evidence of laceration to the bucchal surface of the right lower lip.). Absent: normal exam Neck exam: Present: normal inspection, full ROM, other (Nontender, no step-off, no deformity to firm midline palpation of the posterior cervical spine. Full range of motion without pain or limitation.). Absent: tenderness, meningismus, lymphadenopathy Respiratory exam: Present: normal lung sounds bilaterally. Absent: respiratory distress, wheezes, rales, rhonchi, stridor Cardiovascular Exam: Present: regular rate, normal rhythm, normal heart sounds. Absent: systolic murmur, diastolic murmur, rubs, gallop, clicks GI/Abdominal exam: Present: soft, normal bowel sounds. Absent: distended, tenderness, guarding, rebound, rigid Neurological exam: Present: alert, oriented X3, CN II-XII intact Psychiatric exam: Present: normal affect, normal mood Skin exam: Present: warm, dry, intact, normal color. Absent: rash <Rocio Nazario - Last Filed: 04/13/19 19:00> Course Vital Signs 04/12/19 04/12/19 19:36 22:27 Temperature 98.0 F 98.2 F Pulse Rate 82 81 Respiratory 18 18 Rate Blood Pressure 147/96 111/91 O2 Sat by Pulse 96 95 Oximetry Procedures - Laceration Laceration #1 Consent Obtained: verbal consent Indication: laceration Site: lip (Right) Size (cm): 1 Description: linear Depth: [id number] Anesthetic Used: lidocaine 1% Anesthesia Technique: local infiltration Amount (mls): 1 Pre-repair: irrigated extensively Type of Sutures: nylon Size of Sutures: 5-0 Number of Sutures: 1 Technique: simple, interrupted Patient Tolerated Procedure: well, no complications <Rocio Nazario M - Last Filed: 04/13/19 19:00> Medical Decision Making - Radiology Data Radiology results: report reviewed, image reviewed <Rocio Nazario - Last Filed: 04/13/19 19:00> <Shelbie Perry - Last Filed: 04/14/19 05:45> - Medical Decision Making 58 year-old male patient presented to the emergency department today for evaluation after experiencing a fall. Physical examination did reveal a 1 cm laceration to the right lower lip, this is through and through to the bucchal surface. There are no loose or broken teeth. Patient is neurologically intact. He is intoxicated. is present and provides history. CT brain C-spine and facial bones were obtained and showed no abnormalities. Laceration was repaired as documented. Tetanus was updated. He'll be discharged home with his primary care physician for recheck in 1-2 days. Return parameters were discussed in detail. He verbalizes understanding and agrees with this plan (Rocio Nazario) I was available for consultation in the emergency department. The history and physical exam were done by the midlevel provider. I was consulted for this patient's care. I reviewed the case with the midlevel provider and based on their presentation of the patient, I agree with the assessment, medical decision making and plan of care as documented. Chart was dictated using [employer] dictation software. Attempts were made to correct any dictation errors however some typographical errors may persist. (Shelbie Perry) - Lab Data Lab Results 04/12/19 Range/Units 20:55 POC Glucose (mg/dL) 94 (75-99) mg/dL POC Glu Mix House Tender ID [email or web address] landrum - Radiology Data CT facial bones without contrast was obtained. Report was reviewed in its entirety. Impression by Dr. Mars shows negative computed tomography scan of facial bones. No fracture seen. CT brain and C-spine without contrast was obtained. Report was reviewed in its entirety. Impression by Dr. Mars shows negative computed tomography scan of the brain. Negative computed tomography scan of cervical spine. (Rocio Nazario) Disposition Is patient prescribed a controlled substance at d/c from ED?: No Time of Disposition: 22:14 <Rocio Nazario - Last Filed: 04/13/19 19:00> <Shelbie Perry - Last Filed: 04/14/19 05:45> Clinical Impression: Fall, Alcohol intoxication, Facial laceration Disposition: HOME SELF-CARE Condition: Good Instructions (If sedation given, give patient instructions): Care For Your Stitches (ED), Alcohol Intoxication (ED), Facial Laceration (ED) Additional Instructions: Keep wound clean and dry. Follow up with the primary care physician for recheck in 1-2 days. Return to the emergency department immediately for any new, worsening, or concerning symptoms. Referrals: Itz Chahal DO [Primary Care Provider] - 1-2 days
[2019-04-12 22:28] VITALS: BP 111/91; PULSE 81; TEMP 98.2
== END 2019-04-12 22:28 | disposition home or self-care (01) ==
LOC: EC 19:19
DX: S01.511A Laceration without foreign body of lip, initial encounter (principal); F10.129 Alcohol abuse with intoxication, unspecified; E03.9 Hypothyroidism, unspecified; I10 Essential (primary) hypertension; E78.5 Hyperlipidemia, unspecified; K21.9 Gastro-esophageal reflux disease without esophagitis; Z87.891 Personal history of nicotine dependence; Z79.890 Hormone replacement therapy; Z79.899 Other long term (current) drug therapy; Z95.5 Presence of coronary angioplasty implant and graft; Z23 Encounter for immunization; W19.XXXA Unspecified fall, initial encounter
CPT/HCPCS: 99284; 90471; 12011; 36415; 72125; 70486; 70450; 90715; J2001

== ENCOUNTER → 2019-04-16 | Outpatient (CLI) | payer BC ==
--- NOTE | 2019-04-18 08:06 | MR ---
EXAMINATION TYPE: MR Prostate wo/w con DATE OF EXAM: 04/16/2019 COMPARISON: None. IMAGE QUALITY: Good. INDICATION: Prostate Cancer, Biopsy x 1 year ago PSA: 5.4 ng/ml on April 02, 2019 increased from 4.25 on December 07, 2017 Recent Biopsy and Date: December 25, 2017 left mid prostate medial Auburn score 3+3 = 6, 20% 3 mm. Righ t apical medial Lisa score 3+3 = 6, 20% 10 mm involvement and right apical lateral Lisa score 3 +3 = 6 2% tumor involvement 0.2 mm. Pathology Report (If Applicable): See above TECHNIQUE: Examination was performed using a 3T MRI without an endorectal coil. Multiparametric imaging was perf ormed with T2 mutliplanar sequences, axial diffusion weighted imaging and dynamic contrast enhanced i maging, utilizing 13 mL intravenous Gadavist gadolinium contrast. FINDINGS: There is no clinically significant cancer identified. PROSTATE VOLUME: 3.8 cm SI x 3.7 cm AP x 4.8 cm LR Vol= 38.71 cc PSA DENSITY: 4.64 ng/ml/cc Analysis of the peripheral zone shows slight heterogeneity with occasional areas of slight indistinct hypointensity. No areas of suspicious focal mild/moderate hypointensity on ADC mapping or areas of i ncreased signal on DWI are present. The central transitional zone is not enlarged, there is some heterogeneity without suspicious lesion of diminished T2 signal. Prostatic capsule is maintained. Seminal vesicles are both within normal limits. No suspicious adjace nt adenopathy is seen. Bladder shows mild trabeculation otherwise both within normal limits. Some sigmoid colonic diverticul a are present. No concerning pelvic fluid collection is seen. Visualized osseous structures are intac t. IMPRESSION: Minimally enlarged prostate gland. A focus of clinically significant cancer is not identified. Highest Assessment Category: 2 MRI Stage: T 1c N0 M0 based on review of pelvic images. False negative rates for MRI range from 5-20% depending on risk profile. Assessment Categories: 1 ? Very low (clinically significant cancer is highly unlikely to be present) 2 ? Low (clinically significant cancer is unlikely to be present) 3 ? Intermediate (the presence of clinically significant cancer is equivocal) 4 ? High (clinically significant cancer is likely to be present) 5 ? Very high (clinically significant cancer is highly likely to be present) Locations: PZ = peripheral zone; TZ = transition zone CZ=central zone; AFS = anterior fibromuscular stroma a=anterior half (i.e. PZa=anterior half of peripheral zone); pm= posterior medial (i.e PZpm) pl = postero-lateral (i.e. PZpl); p = posterior half (i.e. TZp) ; a = anterior half (i.e TZa or P Za) Other: N=no or no; E= equivocal; Y=yes EPE = extraprostatic extension NVB = neurovascular bundle NA = not applicable/not available
== END | disposition home or self-care (01) ==
LOC: RADMRIMAIN 18:28
PROVIDERS: ATTEND Urology
DX: C61 Malignant neoplasm of prostate (principal)
CPT/HCPCS: 72197; A9585

== ENCOUNTER 2021-07-19 09:29 | Day surgery (SDC) | payer BC ==
[2021-07-18 09:49] VITALS: BMI 42.6
[~2021-07-19 09:29] MED LIST changes: -ALPRAZolam 0.25 MG TAB PO PRN; -ALPRAZolam 0.5 MG TAB PO PRN; -ASPIRIN 325 MG TAB PO STA; -ATORVASTATIN 80 MG TAB PO STA; +DEXAMETHASONE SOD PHOSPHATE 4 MG/ML 1 ML VIAL IV ONE; +HEPARIN SODIUM,PORCINE/PF 5,000 UNIT/0.5 ML SYRINGE SQ PRN; +HYDROmorphone 0.5 MG/0.5 ML SYRINGE IVP PRN; +LACTATED RINGERS 1,000 ML IV SCH; +LIDOCAINE 1% (10MG/ML) FOR IV START INTRADERMA PRN; -NITROGLYCERIN SL TABS 0.4 MG TAB SUBLINGUAL PRN; +ONDANSETRON 4 MG/2 ML VIAL IVP ONE; +SCOPOLAMINE 1.5MG/72HR PATCH TRANSDERM ONE; -SODIUM CHLORIDE 0.9% 1,000 ML in EMPTY BAG 1 BAG IV ONE; +ceFAZolin 3 GM in SODIUM CHLORIDE 0.9% 100 ML IVPB PRN
[2021-07-19 10:23] LABS: Glucose,Whole Blood 104 mg/dL (75-99)
[2021-07-19] MEDS ORDERED: MIDAZOLAM 2 MG/2 ML VIAL IVP ONE (10:54)
[2021-07-19] MEDS ORDERED: LIDOCAINE 1% INJ 10MG/ML (20 ML MDV) ONE (12:11)
[2021-07-19] MEDS ORDERED: GLYCOPYRROLATE 0.2 MG/ML 2 ML VIAL ONE (12:11)
[2021-07-19] MEDS ORDERED: MIDAZOLAM 2 MG/2 ML VIAL ONE (12:11)
[2021-07-19] MEDS ORDERED: SUCCINYLCHOLINE CHLORIDE VIAL 200 MG/10 ML VIAL IV ONE (12:11)
[2021-07-19] MEDS ORDERED: ROCURONIUM 10 MG/ML (5 ML VIAL) IV ONE (12:11)
[2021-07-19] MEDS ORDERED: DEXAMETHASONE SOD PHOSPHATE 4 MG/ML 1 ML VIAL ONE (12:11)
[2021-07-19] MEDS ORDERED: ALBUTEROL HFA INHALER INHALATION ONE (12:11)
[2021-07-19] MEDS ORDERED: KETAMINE 10 MG/ML 20 ML VIAL ONE (12:11)
[2021-07-19] MEDS ORDERED: PROPOFOL 10 MG/ML 20 ML VIAL IV ONE (12:11)
[2021-07-19] MEDS ORDERED: NEOSTIGMINE 1 MG/ML 10 ML VIAL ONE (12:11)
[2021-07-19] MEDS ORDERED: fentaNYL (PF) 50 MCG/ML 2 ML AMP ONE (12:11)
[2021-07-19] MEDS ORDERED: ROPIVACAINE 5 MG/ML 30 ML VIAL ONE (12:11)
[2021-07-19] MEDS ORDERED: LIDOCAINE 2% (PF) 20 MG/ML 10 ML AMP SQ ONE ×2 (12:38)
--- NOTE | 2021-07-19 13:31 | P.OP ---
Date of Procedure: 07/19/21 Preoperative Diagnosis: Umbilical hernia Postoperative Diagnosis: Umbilical hernia Procedure(s) Performed: Robotic incarcerated umbilical hernia repair with mesh placement Implants: [employer] Vantralight Echo system mesh, 11.4 cm circular Anesthesia: SEDA Surgeon: Herlinda Mcdonough Pathology: none sent Condition: stable Disposition: same day Indications for Procedure: 61-year-old male presented to the surgical clinic with complaints of umbilical pain. On exam, he was noted to have a reducible umbilical hernia. Secondary to this discomfort and symptomatic hernia, decision was made for hernia repair. Patient opted for robotic hernia repair. Risks, benefits and alternatives were provided to the patient. He did provide consent prior to attending the operating suite. Operative Findings: 2 x 2 centimeter umbilical hernia, incarcerated with omentum Description of Procedure: The patient was brought to the operating suite and placed in supine position. General anesthesia with endotracheal intubation was performed as per anesthesia team. The right arm was tucked against the body and a 4 port was applied. Chlorhexidine was used to prep the skin followed by application of sterile drapes and a timeout was performed to verify correct patient and correct procedure. The patient was confirmed to received perioperative IV antibiotics, bilateral SCDs and 5000 units of subcutaneous heparin for DVT prophylaxis. A 5 mm skin incision was made along the left midaxillary line at [place] point and the abdomen was entered under direct visualization using a Visiport. Pneumoperitoneum was achieved. The umbilical hernia was clearly visualized. This measured approximately 2 x 2 centimeters and was noted to be incarcerated with omentum. An additional 8 mm trocar was placed in left lower abdomen and a 12 mm trocar was placed in left mid abdomen. The initial 5 mm trocar was upsized to an 8 mm trocar. The da Godfrey robot was undocked. The 30 robotic camera was used. The hernia defect was noted to be incarcerated with omentum. This was reduced with gentle traction and countertraction method. Cautery was also used. The falciform ligament was divided using monopolar scissors close to the anterior abdominal wall to create a landing zone for the mesh. A [employer] echo system circular mesh was rolled and introduced into the abdominal cavity via the 12 mm trocar. The hernia defect was closed primarily with running sutures using oh be locked by taking 1 cm bite on the fascia on either side of the defect. A Farhan Shannon device was inserted through the middle of the hernia defect and the stay suture on the mesh was grasped to elevate the mesh against the anterior abdominal wall. The mesh was circumferentially sutured to the peritoneum of the anterior abdominal wall using 20V lock without any folds or kinks. The robot was then undocked. Laparoscopic camera was reinserted. All trocar sites were examined. No evidence of bleeding. All sutures were removed from the abdomen. The 12 mm trocar site was closed using 2 trans-fascial sutures of 0 Vicryl which were placed using a Farhan-Gabrielle device. The pneumoperitoneum was evacuated and all skin incisions were closed by using 4-0 Vicryl by Dermabond skin glue. The sponge, instrument and needle, were correct 2. Abdominal binder was applied. The patient was x-rayed and taken to postanesthesia care unit in stable condition.
[2021-07-19 13:46] VITALS: TEMP 96.9
[2021-07-19 14:31] VITALS: RESP 18
[2021-07-19 14:39] VITALS: BP 138/88; PULSE 77
--- NOTE | 2021-07-20 10:11 | P.ANPRN ---
Procedure Note - Anesthesia - Nerve Block Performed Bilateral Rectus Abdominis Single Time Out Performed: Yes Date of Procedure: 07/19/21 Location of Patient: PreOp Indication: Acute Post-Operative Pain, Requested by Surgeon Sedation Type: Sedate with meaningful contact maintained Preparation: Sterile Prep Position: Supine Needle Types: Pajunk Needle Gauge: 21 Ultrasound used to visualize needle placement: Yes Ultrasound used to observe medication spread: Yes Blood Aspirated: No Pain Paresthesia on Injection Noted: No Resistance on Injection: Normal Image Stored and Saved: Yes Events: Uneventful and Well Tolerated (ropi .5% 20cc plus dexamethasone 4mg given bilaterally)
== END 2021-07-19 15:00 | disposition home or self-care (01) ==
LOC: OR 09:29
PROVIDERS: ATTEND Surgery
DX: K42.9 Umbilical hernia without obstruction or gangrene (principal); I25.10 Atherosclerotic heart disease of native coronary artery without angina pectoris; I10 Essential (primary) hypertension; E78.5 Hyperlipidemia, unspecified; J44.9 Chronic obstructive pulmonary disease, unspecified; E07.9 Disorder of thyroid, unspecified; Z79.899 Other long term (current) drug therapy; Z79.890 Hormone replacement therapy; Z95.818 Presence of other cardiac implants and grafts
CPT/HCPCS: 49653; 64999; C1781; J2250; J0330; J1100; J2710; J2001 ×2; J0690; J2405; J3010; J2704; J1170; J1644

== ENCOUNTER → 2023-06-19 | Outpatient (CLI) | payer OTHER ==
--- NOTE | 2023-06-20 10:13 | CT ---
EXAMINATION TYPE: CT chest w con DATE OF EXAM: 06/19/2023 COMPARISON: 11/24/2022 HISTORY: Abnormal findings, hx of prostate cancer CT DLP: 873.8 mGycm Automated exposure control for dose reduction was used. TECHNIQUE: CT scan of the chest is performed with IV Contrast, patient injected with 100 cc mL of Isovue 300. M IP Images are created on CT scanner and reviewed. 3D reconstructed images are created on an [employer] workstation and reviewed. FINDINGS: LUNGS: The lungs are grossly clear, there is no concerning parenchymal mass or nodule identified. T here is no pleural effusion or pneumothorax seen. The tracheobronchial tree is patent. Subsegmental areas of consolidation of most of atelectasis or scarring. There is mild central lobular sinus changes. Left upper lobe area of consolidation has resolved. No suspicious pulmonary nodules. MEDIASTINUM: No pathologic-sized lymphadenopathy. Calcified lymph nodes are seen and there is shotty subcentimeter short axis lymphadenopathy coronary artery calcification is noted. Mild atherosclerotic change aorta. Heart size normal. OTHER: Hepatomegaly with hepatic granuloma and hepatic stenosis. Splenic granuloma. Hypertrophic and degenerative changes of the spine. Small hiatal hernia. Small amount of gynecomastia. IMPRESSION: 1. COPD with resolution of left upper lobe area of consolidation. Lower lobe areas of consolidation a nteriorly most compatible with atelectasis. 2. Hepatomegaly with hepatic steatosis and hepatic\Splenic granuloma. 3. Small hiatal hernia with distal esophageal wall thickening correlate for reflux esophagitis.
== END | disposition home or self-care (01) ==
LOC: RADCTMAIN 17:02
PROVIDERS: ATTEND Internal Medicine Critical Care Medicine
DX: J44.9 Chronic obstructive pulmonary disease, unspecified (principal); K76.0 Fatty (change of) liver, not elsewhere classified; K44.9 Diaphragmatic hernia without obstruction or gangrene; K22.89 Other specified disease of esophagus; L92.8 Other granulomatous disorders of the skin and subcutaneous tissue; K57.30 Diverticulosis of large intestine without perforation or abscess without bleeding; R16.0 Hepatomegaly, not elsewhere classified; R91.8 Other nonspecific abnormal finding of lung field; Z85.46 Personal history of malignant neoplasm of prostate
CPT/HCPCS: 71260; Q9967